=== PATIENT | male | born 1965 | race Caucasian/White ===

== ENCOUNTER 2017-04-06 10:29 | Emergency (ER) | payer SELFPAY ==
[~2017-04-06] VITALS: Ht 167.6 cm; Wt 104.3 kg
[2017-04-06] MEDS: ONDANSETRON HCL 4 MG/2 ML VIAL IV ONE ×2 (11:00→11:24)
[2017-04-06] MEDS ORDERED: TETANUS-DIPTH-ACEL PERTUSSIS 0.5ML SYRG IM ONE (11:00)
[2017-04-06] MEDS: MORPHINE SULFATE 4 MG/ML SYRG IV ONE ×2 (11:00→11:24)
[2017-04-06 15:05] VITALS: BP 175/109
== END 2017-04-06 15:21 | disposition short-term general hospital (02) ==
LOC: ER 10:29
DX: S02.82XA Fracture of other specified skull and facial bones, left side, initial encounter for closed fracture (principal); W08.XXXA Fall from other furniture, initial encounter; Y93.89 Activity, other specified; Y99.8 Other external cause status; Y92.89 Other specified places as the place of occurrence of the external cause
CPT/HCPCS: 70480; 70486; 90471; 90715; 94761

== ENCOUNTER 2017-05-25 00:03 | Emergency (ER) | payer SELFPAY ==
[~2017-05-25] VITALS: Ht 167.6 cm; Wt 104.3 kg
[2017-05-25 00:40] LABS: Basophils # (auto) 0 uL; Basophils % (auto) 0.8 % (0.0-2.0); Eosinophils # (auto) 0.3 uL; Eosinophils % (auto) 4.7 % (0.0-7.0); Hemoglobin 17.8 g/dL (13.5-17.5); Lymphocytes # (auto) 1.7 uL; Lymphocytes % (auto) 28.4 % (10.0-50.0); Mean Corpuscular Hgb Conc. 34.2 g/dL (32.0-36.0); Mean Corpuscular Volume 93.6 fL (80.0-100.0); Mean Platelet Volume 7.8 fL (7.4-10.4); Monocytes # (auto) 0.5 uL; Monocytes % (auto) 7.5 % (0.0-12.0); Neutrophils # (auto) 3.6 uL; Neutrophils % (auto) 58.6 % (37.0-80.0); Platelet Count (auto) 194 10^3/uL (140-450); Red Cell Distribution Width 12.1 % (11.6-16.0); White Blood Cell 6.1 10^3/uL (4.4-10.8)
[2017-05-25 00:57] LABS: Albumin 3.2 g/dL (3.4-5.0); BUN/Creatinine Ratio 9.5; Calcium 8.4 mg/dL (8.5-10.1); Potassium 4.3 mmol/L (3.5-5.1)
[2017-05-25 01:00] LABS: Bilirubin, Total 0.4 mg/dL (0.2-1.0); Total Protein 7.8 g/dL (6.4-8.2)
[2017-05-25 01:01] LABS: INR 1.05 (0.9-1.15); Partial Thromboplastin Time 26.5 sec (22.64-33.71); Prothrombin Time 11.4 sec (9.37-12.3)
[2017-05-25] MEDS ORDERED: cefTRIAXone 1GM/50ML D5W 50 ML IV ONE ×2 (01:14→01:30)
[2017-05-25] MEDS ORDERED: HYDROmorphone HCL 2 MG/ML VL IV ONE ×2 (01:15→02:45)
[2017-05-25] MEDS ORDERED: ONDANSETRON HCL 4 MG/2 ML VIAL IV ONE ×2 (01:15→02:45)
[2017-05-25] MEDS ORDERED: LIDOCAINE 2%HCL (LOCAL ANESTH.) INJ 20ML MDV ONE (01:38)
[2017-05-25] MEDS ORDERED: LIDOCAINE 1% HCL (LOCAL ANESTH.) INJ 20ML MDV ONE (01:51)
[2017-05-25] MEDS ORDERED: NEOMYCIN-BACITRACIN-POLYM 15GM TOP OINT TOP ONE (02:22)
[2017-05-25] MEDS ORDERED: LIDOCAINE 1% HCL (LOCAL ANESTH.) INJ 20ML MDV IJ ONE (02:45)
[2017-05-25] MEDS ORDERED: NEOMYCIN-BACITRACIN-POLYM UNITDOSE PKG TOP OINT TOP ONE (02:45)
[2017-05-25] MEDS ORDERED: LEVOFLOXACIN 500 MG TAB PO ONE (04:15)
[2017-05-25 04:52] VITALS: BP 122/99
== END 2017-05-25 04:55 | disposition home or self-care (01) ==
LOC: EDBD 00:03 → ER 00:06
DX: S02.2XXA Fracture of nasal bones, initial encounter for closed fracture (principal); S01.81XA Laceration without foreign body of other part of head, initial encounter; Z88.0 Allergy status to penicillin; W20.8XXA Other cause of strike by thrown, projected or falling object, initial encounter; Z91.81 History of falling; Y93.89 Activity, other specified; Y99.8 Other external cause status; Y92.89 Other specified places as the place of occurrence of the external cause
CPT/HCPCS: 12015; 36415; 70450; 70486; 80053; 85025; 85610; 85730; 93005; 94761; 96365; 96375; 96376; 99285; J0696; J1170; J2001; J2405; J7030

== ENCOUNTER 2020-08-11 08:02 | Emergency (ER) | payer SELFPAY ==
[~2020-08-11] VITALS: Ht 167.6 cm; Wt 86.2 kg
[2020-08-11 09:47] LABS: Basophils # (auto) 0.1 10 ^3/uL (0-0.2); Basophils % (auto) 0.7 % (0.0-2.0); Eosinophils # (auto) 0.2 10 ^3/uL (0-0.8); Eosinophils % (auto) 2.5 % (0.0-7.0); Hematocrit 45.3 % (41.0-53.0); Hemoglobin 15.7 g/dL (13.5-17.5); Lymphocytes # (auto) 1.1 10 ^3/uL (0.4-5.4); Lymphocytes % (auto) 13.6 % (10.0-50.0); Mean Corpuscular Hemoglobin 32.2 pg (28.0-32.0); Mean Corpuscular Hgb Conc. 34.6 g/dL (32.0-36.0); Mean Corpuscular Volume 93.1 fL (80.0-100.0); Monocytes # (auto) 0.5 10 ^3/uL (0-1.3); Monocytes % (auto) 6.3 % (0.0-12.0); Neutrophils # (auto) 6.3 10 ^3/uL (1.6-8.6); Neutrophils % (auto) 76.9 % (37.0-80.0); Nucleated Red Blood Cells % 0.2 %; Platelet Count (auto) 251 10^3/uL (140-450); Red Blood Cells 4.87 10^6/uL (4.5-5.90); Red Cell Distribution Width 12.3 % (11.8-14.3); White Blood Cell 8.2 10^3/uL (4.4-10.8)
[2020-08-11 10:11] LABS: BUN/Creatinine Ratio 9.6; Calcium 8.2 mg/dL (8.5-10.1)
[2020-08-11] MEDS ORDERED: IOHEXOL 300 MG/ML 100ML BOTTLE IJ ONE (10:15)
[2020-08-11] MEDS ORDERED: KETOROLAC TROMETH 30 MG/ML 1ML VIAL IV ONE (11:45)
[2020-08-11 18:05] VITALS: BP 158/95
== END 2020-08-11 18:20 | disposition home or self-care (01) ==
LOC: ER 08:02
DX: S00.83XA Contusion of other part of head, initial encounter (principal); Q79.60 Ehlers-Danlos syndrome, unspecified; R22.1 Localized swelling, mass and lump, neck; X58.XXXA Exposure to other specified factors, initial encounter; Y93.89 Activity, other specified; Y92.89 Other specified places as the place of occurrence of the external cause; Y99.8 Other external cause status
CPT/HCPCS: 36415; 70450; 72125; 73030; 80048; 85025; 96374; 99285; J1885; J7030; Q9967

== ENCOUNTER 2024-01-27 08:17 | Emergency (ER) | payer OTHER ==
[~2024-01-27] VITALS: Ht 167.6 cm; Wt 94.7 kg
[~2024-01-27 08:17] MED LIST: ASPI-325 PO; ATOR40TA52 PO; EMPA1TAB PO; LISI10TA34 PO; MELO15TA29 PO; MET25T PO; METF-372 PO; SACU1TAB PO
[2024-01-27 08:38] LABS: Urine Bacteria None Seen /hpf (None Seen)
[2024-01-27 08:49] LABS: Urine Blood Negative /uL (Negative); Urine Clarity Clear (Clear); Urine Color Yellow (Yellow); Urine Hyaline Cast FEW /lpf (0 - 2); Urine Mucus FEW (None Seen); Urine Protein, UAD TRACE (Negative); Urine Specific Gravity 1.025 (1.001-1.035); Urine Urobilinogen Normal (Negative); Urine WBC 3 /hpf (0 - 3); Urine pH 5.5 (5.0-9.0)
[2024-01-27 08:55] LABS: Basophils # (auto) 0.1 10 ^3/uL (0-0.2); Basophils % (auto) 1.2 % (0.0-2.0); Eosinophils # (auto) 0.3 10 ^3/uL (0-0.8); Eosinophils % (auto) 3.9 % (0.0-7.0); Hematocrit 43.1 % (41.0-53.0); Hemoglobin 14.5 g/dL (13.5-17.5); Lymphocytes # (auto) 1.5 10 ^3/uL (0.4-5.4); Lymphocytes % (auto) 22.7 % (10.0-50.0); Mean Corpuscular Hemoglobin 30.6 pg (28.0-32.0); Mean Corpuscular Hgb Conc. 33.7 g/dL (32.0-36.0); Mean Corpuscular Volume 90.9 fL (80.0-100.0); Monocytes # (auto) 0.5 10 ^3/uL (0-1.3); Monocytes % (auto) 8.2 % (0.0-12.0); Neutrophils # (auto) 4.1 10 ^3/uL (1.6-8.6); Nucleated Red Blood Cells % 0.2 %; Red Blood Cells 4.75 10^6/uL (4.5-5.90); Red Cell Distribution Width 12.4 % (11.8-14.3); White Blood Cell 6.4 10^3/uL (4.4-10.8)
[2024-01-27 09:10] LABS: Alanine Aminotransferase 37 U/L (7-40); Albumin 4.8 g/dL (3.2-4.8); Alkaline Phosphatase 72 U/L (46-116); Aspartate Aminotransferase 29 U/L (13-40)
[2024-01-27 09:11] LABS: Bilirubin, Total 0.8 mg/dL (0.2-1.0); Total Protein 7.2 g/dL (5.7-8.2)
[2024-01-27 09:12] LABS: Chloride 99 mmol/L (98-107); Potassium 4.2 mmol/L (3.5-5.1); Sodium 132 mmol/L (136-145)
[2024-01-27 09:15] LABS: Anion Gap 9 (5-15); Calcium 9.6 mg/dL (8.5-10.1); Carbon Dioxide 24 mmol/L (20-30)
[2024-01-27 09:20] LABS: BUN/Creatinine Ratio 15.2 (10.0-20.0); Blood Urea Nitrogen 14 mg/dL (9-23); Glucose 121 mg/dL (74-106)
[2024-01-27 15:49] VITALS: BP 137/76; PULSE 61; RESP 20; TEMP 97.2; O2SAT 97
== END 2024-01-27 16:01 | disposition home or self-care (01) ==
LOC: ER 08:17
DX: R20.2 Paresthesia of skin (principal); I10 Essential (primary) hypertension; E11.9 Type 2 diabetes mellitus without complications; E78.5 Hyperlipidemia, unspecified; I25.2 Old myocardial infarction; Z88.0 Allergy status to penicillin; Z79.899 Other long term (current) drug therapy
CPT/HCPCS: 36415; 80053; 81001; 82962; 84484; 85025; 93005

== ENCOUNTER 2024-09-23 11:12 | Emergency (ER) | payer OTHER ==
[~2024-09-23] VITALS: Ht 172.7 cm; Wt 94.0 kg
[2024-09-23] MEDS: SACUBITRIL-VALSARTAN 24mg/26mg TAB PO SCH (12:31)
--- NOTE | 2024-09-23 12:52 | ED.PDOC ---
History of Present Illness HPI Comments 58Y M with PMHx DM, HTN, HLD, and [place] presents to ED for chief complaint dizziness. Additional symptoms include general weakness and blurry vision. Symptoms began while pt was at work today. Pt says he feels uneasy when standing up. Pt denies chest pain, SOB, and headache. Allergies include PCN. Chief Complaint: Dizziness Time Seen by MD: 12:33 Primary Care Provider: ISABEL Lemons Notes: Medications, Allergies Allergies: Coded Allergies: Penicillins (Verified Allergy, Unknown, 01/07/24) Uncoded Allergies: PENICILLIN (Allergy, Unknown, 05/25/17) Home Meds Active Scripts Sacubitril-Valsartan (Entresto 24-26 mg) 1 Tab Tab, 1 TAB PO BID for 30 Days, # 60 TAB 30 Refills Prov:KONSTANTIN BURNS DO 01/10/24 Metoprolol Tartrate (Lopressor) 25 Mg Tb, 12.5 MG PO BID for 30 Days, #30 TAB 3 Refills Prov:KONSTANTIN BURNS DO 01/10/24 Empagliflozin (Jardiance) 10 Mg Tab, 10 MG PO DAILY for 30 Days, #30 TAB 3 Refills Prov:KONSTANTIN BURNS DO 01/10/24 Atorvastatin Calcium (ATORVASTATIN CALCIUM) 40 Mg Tab, 1 TAB PO DAILY for 30 Days, #30 TAB 5 Refills Prov:KONSTANTIN BURNS DO 01/10/24 Aspirin (Aspirin Low Dose) 81 Mg Tab, 81 MG PO DAILY for 30 Days, #30 TAB 3 Refills Prov:KONSTANTIN BURNS DO 01/10/24 Reported Medications Meloxicam (Meloxicam) 15 Mg Tab, 1 TAB PO DAILY 01/08/24 Lisinopril (Lisinopril) 10 Mg Tab, 1 TAB PO DAILY 01/08/24 Metformin Hydrochloride (Metformin Hcl) 1,000 Mg Tab, 1 TAB PO BID 01/08/24 Information Source: Patient Mode of Arrival: Ambulatory Severity: Mild Timing: Hours Duration: Since onset Past Medical History PAST MEDICAL HISTORY: DM, High Lipids, HTN, [place] Surgical History: Denies all surgeries Family History Family History: Reviewed,noncontributory to illness Social History Smoker: Non-Smoker Alcohol: Occasionally Drugs: Denies Drug Use Lives In: Home Constitutional: reports: weakness; denies: chills, diaphoresis, fatigue, fever, malaise, sweats, others EENTM: reports: blurred vision; denies: double vision, ear bleeding, ear discharge, ear drainage, ear pain, ear ringing, eye pain, eye redness, hearing loss, mouth pain, mouth swelling, nasal discharge, nose bleeding, nose congestion, nose pain, photophobia, tearing, throat pain, throat swelling, voice changes, others Respiratory: denies: cough, hemoptysis, orthopnea, SOB at rest, shortness of breath, SOB with excertion, stridor, wheezing, others Cardiovascular: denies: chest pain, dizzy spells, diaphoresis, Dyspnea on exertion, edema, irregular heart beat, left arm pain, lightheadedness, palpitations, PND, syncope, others Gastrointestinal: denies: abdomen distended, abdominal pain, blood streaked bowels, constipated, diarrhea, dysphagia, difficulty swallowing, hematemesis, melena, nausea, poor appetite, poor fluid intake, rectal bleeding, rectal pain, vomiting, others Genitourinary: denies: burning, dysuria, flank pain, frequency, hematuria, incontinence, penile discharge, penile sore, pain, testicle pain, testicle swelling, urgency, others Neurological: reports: dizziness; denies: fainting, headache, left sided numbness, left sided weakness, numbness, paresthesia, pre-existing deficit, right sided numbness, right sided weakness, seizure, speech problems, tingling, tremors, weakness, others Musculoskeletal: denies: back pain, gout, joint pain, joint swelling, muscle pain, muscle stiffness, neck pain, others Integumetry: denies: bruises, change in color, change in hair/nails, dryness, laceration, lesions, lumps, rash, wounds, others Allergic/Immunocompromised: denies: Difficulty Healing, Frequent Infections, Hives, Itching, others Hematologic/Lymphatic: denies: anemia, blood clots, easy bleeding, easy br uising, swollen glands, others Endocrine: denies: excessive hunger, excessive sweating, excessive thirst, excessive urination, flushing, intolerance to cold, intolerance to heat, unexplained weight gain, unexplained weight loss, others Psychiatric: denies: anxiety, bipolar disorder, depression, hopeless, panic disorder, schizophrenia, sleepless, suicidal, others All Other Systems: Reviewed and Negative Physical Exam General Appearance: No Apparent Distress, Normal HEENT: Normal ENT Inspection, Pharynx Normal, TMs Normal Neck: Full Range of Motion, Non-Tender, Normal, Normal Inspection Respiratory: Chest Non-Tender, Lungs Clear, No Accessory Muscle Use, No Respiratory Distress, Normal Breath Sounds Cardiovascular: No Edema, No JVD, No Murmur, No Gallop, Normal Peripheral Pulses, Regular Rate/Rhythm Breast Exam: Deferred Gastrointestinal: No Organomegaly, Non Tender, No Pulsatile Mass, Normal Bowel Sounds, Soft Genitalia: Deferred Pelvic: Deferred Rectal: Deferred Extremities: No calf tenderness, Normal capillary refill, Normal inspection, Normal range of motion, Non-tender, No pedal edema Musculoskeletal : Apperance: Normal 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 Was a procedure done?: No Differential Dx Considerations may include: May, NSTEMI, electrolyte abnormalities, UTI X-Ray, Labs, Meds, VS Vital Signs Date Time Temp Pulse Resp B/P (MAP) Pulse Ox O2 Delivery O2 Flow Rate FiO2 09/23/24 12:34 126/66 (86) 98 09/23/24 11:47 60 18 157/80 (105) 96 09/23/24 11:47 60 18 96 Room Air 09/23/24 11:25 60 09/23/24 11:24 97.4 67 20 198/107 (137) 97 Lab Test 09/23/24 14:21 09/23/24 13:45 Range/Units Troponin I High Sensitivity < 3 L 3 L </=54 ng/L White Blood Count 6.0 4.4-10.8 10^3/uL Red Blood Count 4.56 4.5-5.90 10^6/uL Hemoglobin 14.3 13.5-17.5 g/dL Hematocrit 42.8 41.0-53.0 % Mean Corpuscular Volume 93.8 80.0-100.0 fL Mean Corpuscular Hemoglobin 31.4 28.0-32.0 pg Mean Corpuscular Hemoglobin Concent 33.5 32.0-36.0 g/dL Red Cell Distribution Width 13.1 11.8-14.3 % Platelet Count 227 140-450 10^3/uL Mean Platelet Volume 7.7 6.9-10.8 fL Neutrophils (%) (Auto) 59.8 37.0-80.0 % Lymphocytes (%) (Auto) 24.8 10.0-50.0 % Monocytes (%) (Auto) 11.6 0.0-12.0 % Eosinophils (%) (Auto) 2.7 0.0-7.0 % Basophils (%) (Auto) 1.1 0.0-2.0 % Neutrophils # (Auto) 3.6 1.6-8.6 10 ^3/uL Lymphocytes # (Auto) 1.5 0.4-5.4 10 ^3/uL Monocytes # (Auto) 0.7 0-1.3 10 ^3/uL Eosinophils # (Auto) 0.2 0-0.8 10 ^3/uL Basophils # (Auto) 0.1 0-0.2 10 ^3/uL Nucleated Red Blood Cells 0.1 % D-Dimer, Quantitative 0.19 0.0-0.49 mg/L FEU Sodium Level 136 136-145 mmol/L Potassium Level 4.8 3.5-5.1 mmol/L Chloride Level 99 98-107 mmol/L Carbon Dioxide Level 28 20-31 mmol/L Anion Gap 9 5-15 Blood Urea Nitrogen 13 9-23 mg/dL Creatinine 0.73 0.700-1.30 mg/dL Glomerular Filtration Rate Calc 105 >90 mL/min BUN/Creatinine Ratio 17.8 10.0-20.0 Serum Glucose 119 H 74-106 mg/dL Calcium Level 10.4 8.7-10.4 mg/dL Total Bilirubin 0.5 0.2-1.0 mg/dL Aspartate Amino Transferase (AST) 11 L 13-40 U/L Alanine Aminotransferase (ALT) 26 7-40 U/L Alkaline Phosphatase 84 46-116 U/L Total Protein 7.0 5.7-8.2 g/dL Albumin 4.5 3.2-4.8 g/dL X-Ray, Labs, Meds, VS Comment This well-appearing 58-year-old male presents secondary to a wave going over him. He has no other complaints. Denies any palliative provocative factor. No modifying factors. Denies pain. Upon reassessment, consider to be asymptomatic. As such, discharged home has follow up with the PCP or return to the ER for new/worse/worsening symptoms. He states his understanding. Time of 1ST Reevaluation: 13:03 Reevaluation 1ST: Resolved Time of 2ND Reevaluation: 15:39 Reevaluation 2ND: Resolved Reevaluation 3RD: Resolved Patient Education/Counseling: Diagnosis, Treatment Family Education/Counseling: No Family Present Departure 1 Departure Time of Disposition: 16:30 Impression: Primary Impression: Diabetes mellitus with hyperglycemia Disposition: 01 HOME / SELF CARE / HOMELESS Condition: Good Critical Care Note Critical Care Time?: No Stability Stability form required: No Heart Score Heart Score: Heart Score Response (Comments) Value History N/A 0 EKG N/A 0 Age N/A 0 Risk Factors N/A 0 Troponin N/A 0 Total 0 I personally scribed for THA HENSON MD ([email or web address]) on 09/23/24 at 12:52. Electronically submitted by Jennifer Mark ([employer]). I personally scribed for THA HENSON MD ([email or web address]) on 09/23/24 at 14:02. Electronically submitted by Jennifer Mark ([employer]). THA HENSON MD Sep 23, 2024 12:52
[2024-09-23 14:07] LABS: Basophils # (auto) 0.1 10 ^3/uL (0-0.2); Basophils % (auto) 1.1 % (0.0-2.0); Eosinophils # (auto) 0.2 10 ^3/uL (0-0.8); Eosinophils % (auto) 2.7 % (0.0-7.0); Hematocrit 42.8 % (41.0-53.0); Hemoglobin 14.3 g/dL (13.5-17.5); Lymphocytes # (auto) 1.5 10 ^3/uL (0.4-5.4); Lymphocytes % (auto) 24.8 % (10.0-50.0); Mean Corpuscular Hemoglobin 31.4 pg (28.0-32.0); Mean Corpuscular Hgb Conc. 33.5 g/dL (32.0-36.0); Mean Corpuscular Volume 93.8 fL (80.0-100.0); Monocytes # (auto) 0.7 10 ^3/uL (0-1.3); Monocytes % (auto) 11.6 % (0.0-12.0); Neutrophils # (auto) 3.6 10 ^3/uL (1.6-8.6); Neutrophils % (auto) 59.8 % (37.0-80.0); Nucleated Red Blood Cells % 0.1 %; Platelet Count (auto) 227 10^3/uL (140-450); Red Blood Cells 4.56 10^6/uL (4.5-5.90); Red Cell Distribution Width 13.1 % (11.8-14.3)
[2024-09-23 14:32] LABS: Alanine Aminotransferase 26 U/L (7-40); Alkaline Phosphatase 84 U/L (46-116); Anion Gap 9 (5-15); BUN/Creatinine Ratio 17.8 (10.0-20.0); Blood Urea Nitrogen 13 mg/dL (9-23); Calcium 10.4 mg/dL (8.7-10.4); Carbon Dioxide 28 mmol/L (20-31); Chloride 99 mmol/L (98-107); Potassium 4.8 mmol/L (3.5-5.1); Sodium 136 mmol/L (136-145)
[2024-09-23 14:33] LABS: Albumin 4.5 g/dL (3.2-4.8); Bilirubin, Total 0.5 mg/dL (0.2-1.0)
[2024-09-23 14:53] LABS: Aspartate Aminotransferase 11 U/L (13-40); Glucose 119 mg/dL (74-106)
[2024-09-23 16:48] VITALS: BP 167/77; PULSE 55; RESP 16; TEMP 97.7; O2SAT 100
--- NOTE | 2024-09-27 12:57 | ECG ---
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
== END 2024-09-23 16:49 | disposition home or self-care (01) ==
LOC: ER 11:12
DX: E11.65 Type 2 diabetes mellitus with hyperglycemia (principal); I10 Essential (primary) hypertension; I25.2 Old myocardial infarction; E78.5 Hyperlipidemia, unspecified; Z88.0 Allergy status to penicillin; Z79.1 Long term (current) use of non-steroidal anti-inflammatories (NSAID); Z79.82 Long term (current) use of aspirin; Z79.84 Long term (current) use of oral hypoglycemic drugs; Z79.899 Other long term (current) drug therapy
CPT/HCPCS: 36415; 80053; 84484; 85025; 85379; 93005

== ENCOUNTER 2024-09-30 01:34 | Inpatient (IN) | payer OTHER ==
[~2024-09-30] VITALS: Ht 167.6 cm; Wt 90.6 kg
[2024-09-30] VITALS (9 sets, daily range): BP systolic 102–119; BP diastolic 68–80; PULSE 76–113; RESP 14–26; TEMP 94.8–96.4; O2SAT 86–97
--- NOTE | 2024-09-30 01:47 | ED.PDOC ---
GI ASSESSMENT HPI Comments 58-year-old male who came to ER for abdominal pain. Patient states he has been having abdominal pain since yesterday, intermittent, periumbilical, cramping, nonradiating, associated bouts of nausea and vomiting. Denies any diarrhea. Patient states he possibly ate some spoiled food. Noted worsening of abdominal pain prompted patient to come to the ER. It does have a history of left-sided intra-abdominal mass that was not connected to any organs per patient. Patient was mildly tachycardic at arrival. Chief Complaint: Abdominal Pain Time Seen by MD: 01:47 Primary Care Provider: ISABEL Reviewed Notes: Nurses Notes Allergies: Coded Allergies: Penicillins (Verified Allergy, Unknown, 01/07/24) Uncoded Allergies: PENICILLIN (Allergy, Unknown, 05/25/17) Home Meds Active Scripts Sacubitril-Valsartan (Entresto 24-26 mg) 1 Tab Tab, 1 TAB PO BID for 30 Days, #60 TAB 30 Refills Prov:KONSTANTIN BURNS DO 01/10/24 Metoprolol Tartrate (Lopressor) 25 Mg Tb, 12.5 MG PO BID for 30 Days, #30 TAB 3 Refills Prov:BURNSKONSTANTIN Leslie DO 01/10/24 Empagliflozin (Jardiance) 10 Mg Tab, 10 MG PO DAILY for 30 Days, #30 TAB 3 Refills Prov:KONSTANTIN BURNS DO 01/10/24 Atorvastatin Calcium (ATORVASTATIN CALCIUM) 40 Mg Tab, 1 TAB PO DAILY for 30 Days, #30 TAB 5 Refills Prov:KONSTANTIN BURNS DO 01/10/24 Aspirin (Aspirin Low Dose) 81 Mg Tab, 81 MG PO DAILY for 30 Days, #30 TAB 3 Refills Prov:KONSTANTIN BURNS DO 01/10/24 Reported Medications Meloxicam (Meloxicam) 15 Mg Tab, 1 TAB PO DAILY 01/08/24 Lisinopril (Lisinopril) 10 Mg Tab, 1 TAB PO DAILY 01/08/24 Metformin Hydrochloride (Metformin Hcl) 1,000 Mg Tab, 1 TAB PO BID 01/08/24 Information Source: Patient Mode of Arrival: Ambulatory Timing: Hours Duration: Intermittent Prehospital treatment: None Quality: Cramping Vomitus: Watery Stool: Normal Severity: Moderate Recent: Possible spoiled food Recent Hx of: Diabetes Pain Location: Periumbilical Modifying Factors: Nothing Associated sign and symptoms: Nausea, Vomiting, Abdominal Pain Past Medical History PAST MEDICAL HISTORY: CVA, DM, High Lipids, HTN, [place] Surgical History: Denies all surgeries Surgical History (Other): Resection of intra-abdominal mass Family History Family History: Reviewed,noncontributory to illness Social History Smoker: Non-Smoker Alcohol: Occasionally Drugs: Denies Drug Use Lives In: Home Constitutional: denies: chills, diaphoresis, fatigue, fever, malaise, sweats, weakness, others EENTM: denies: blurred vision, double vision, ear bleeding, ear discharge, ear drainage, ear pain, ear ringing, eye pain, eye redness, hearing loss, mouth pain, mouth swelling, nasal discharge, nose bleeding, nose congestion, nose pain, photophobia, tearing, throat pain, throat swelling, voice changes, others Cardiovascular: denies: chest pain, dizzy spells, diaphoresis, Dyspnea on exertion, edema, irregular heart beat, left arm pain, lightheadedness, palpitations, PND, syncope, others Gastrointestinal: reports: abdominal pain, nausea, poor appetite, vomiting; denies: abdomen distended, blood streaked bowels, constipated, diarrhea, dysphagia, difficulty swallowing, hematemesis, melena, poor fluid intake, rectal bleeding, rectal pain, others Genitourinary: denies: burning, dysuria, flank pain, frequency, hematuria, incontinence, penile discharge, penile sore, pain, testicle pain, testicle swelling, urgency, others Neurological: denies: dizziness, fainting, headache, left sided numbness, left sided weakness, numbness, paresthesia, pre-existing deficit, right sided numbness, right sided weakness, seizure, speech problems, tingling, tremors, weakness, others Musculoskeletal: denies: back pain, gout, joint pain, joint swelling, muscle pain, muscle stiffness, neck pain, others Integumetry: denies: bruises, change in color, change in hair/nails, dryness, laceration, lesions, lumps, rash, wounds, others Allergic/Immunocompromised: denies: Difficulty Healing, Frequent Infections, Hives, Itching, others Hematologic/Lymphatic: denies: anemia, blood clots, easy bleeding, easy bruising, swollen glands, others Endocrine: denies: excessive hunger, excessive sweating, excessive thirst, excessive urination, flushing, intolerance to cold, intolerance to heat, unexp lained weight gain, unexplained weight loss, others Psychiatric: denies: anxiety, bipolar disorder, depression, hopeless, panic disorder, schizophrenia, sleepless, suicidal, others Physical Exam Exam Comments Patient appears much older than his chronology. General Appearance: Moderate Distress (Patient appears to be in moderate distress at time of evaluation.), Normal HEENT: Normal ENT Inspection, Pharynx Normal, TMs Normal Neck: Full Range of Motion, Non-Tender, Normal, Normal Inspection Respiratory: Chest Non-Tender, Lungs Clear, No Accessory Muscle Use, No Respiratory Distress, Normal Breath Sounds Cardiovascular: No Edema, No JVD, No Murmur, No Gallop, Normal Peripheral Pulses, Regular Rate/Rhythm Breast Exam: Deferred Gastrointestinal: Other (Diffuse periumbilical tenderness to palpation throughout. Abdomen was mildly rigid. No signs of trauma. No pulsatile masses.) Genitalia: Deferred Pelvic: Deferred Rectal: Deferred Extremities: No calf tenderness, Normal capillary refill, Normal inspection, Normal range of motion, Non-tender, No pedal edema Musculoskeletal : Apperance: Normal Neurologic: Alert, No Motor Deficits, Normal Affect, Normal Mood, No Sensory Deficits Cerebellar Function: Normal Reflexes: Normal Skin: Dry, Normal Color, Warm Lymphatic: No Adenopathy Was a procedure done? Was a procedure done?: No GI differential Dx Differential Diagnosis: Diverticular disease, Gastritis/PUD, Gastroenteritis, Pancreatitis, UTI, Urolithiasis, Dehydration, Electrolyte Imbalance, Food Poisoning X-Ray, Labs, Meds, VS Vital Signs Date Time Temp Pulse Resp B/P (MAP) Pulse Ox O2 Delivery O2 Flow Rate FiO2 09/30/24 02:16 98.1 104 16 94/71 (79) 94 98.1 09/30/24 02:16 104 16 94 Room Air 09/30/24 01:51 104 09/30/24 01:41 98.5 109 16 126/96 (106) 94 Lab Test 09/30/24 01:56 Range/Units White Blood Count 10.6 # 4.4-10.8 10^3/uL Red Blood Count 5.36 4.5-5.90 10^6/uL Hemoglobin 16.9 # 13.5-17.5 g/dL Hematocrit 49.6 # 41.0-53.0 % Mean Corpuscular Volume 92.6 80.0-100.0 fL Mean Corpuscular Hemoglobin 31.5 28.0-32.0 pg Mean Corpuscular Hemoglobin Concent 34.0 32.0-36.0 g/dL Red Cell Distribution Width 13.3 11.8-14.3 % Platelet Count 308 140-450 10^3/uL Mean Platelet Volume 7.9 6.9-10.8 fL Neutrophils (%) (Auto) 83.3 H 37.0-80.0 % Lymphocytes (%) (Auto) 7.8 L 10.0-50.0 % Monocytes (%) (Auto) 8.0 0.0-12.0 % Eosinophils (%) (Auto) 0.3 0.0-7.0 % Basophils (%) (Auto) 0.6 0.0-2.0 % Neutrophils # (Auto) 8.8 H 1.6-8.6 10 ^3/uL Lymphocytes # (Auto) 0.8 0.4-5.4 10 ^3/uL Monocytes # (Auto) 0.8 0-1.3 10 ^3/uL Eosinophils # (Auto) 0 0-0.8 10 ^3/uL Basophils # (Auto) 0.1 0-0.2 10 ^3/uL Nucleated Red Blood Cells 0.0 % Sodium Level 131 #L 136-145 mmol/L Potassium Level 4.1 3.5-5.1 mmol/L Chloride Level 90 L 98-107 mmol/L Carbon Dioxide Level 28 20-31 mmol/L Anion Gap 13 5-15 Blood Urea Nitrogen 16 9-23 mg/dL Creatinine 1.01 0.700-1.30 mg/dL Glomerular Filtration Rate Calc 86 >90 mL/min BUN/Creatinine Ratio 15.8 10.0-20.0 Serum Glucose 220 #H 74-106 mg/dL Calcium Level 10.1 8.7-10.4 mg/dL Total Bilirubin 1.2 H 0.2-1.0 mg/dL Aspartate Amino Transferase (AST) < 8 L 13-40 U/L Alanine Aminotransferase (ALT) 18 7-40 U/L Alkaline Phosphatase 98 46-116 U/L Troponin I High Sensitivity < 3 L </=54 ng/L B-Type Natriuretic Peptide 10.82 0-100 pg/mL Total Protein 7.8 5.7-8.2 g/dL Albumin 5.0 H 3.2-4.8 g/dL Lipase 30 12-53 U/L Current Medications Medications (Trade) Dose Ordered Sig/Leti Route Start Time Stop Time Status Last Admin Dicyclomine HCl (Bentyl Injection) 20 mg ONCE ONCE IM 09/30/24 01:45 09/30/24 01:46 DC 09/30/24 02:10 Ondansetron HCl (Zofran) 4 mg ONCE ONCE IM 09/30/24 01:45 09/30/24 01:46 DC 09/30/24 02:10 Sodium Chloride 1,000 ml @ 200 mls/hr Q5H ONCE IV 09/30/24 02:30 09/30/24 07:29 09/30/24 02:27 X-Ray, Labs, Meds, VS Comment Patient's laboratories and imaging studies were pending at time of this note. Patient care is being transferred to Dr. Sharp for evaluation of studies when returned. Time of 1ST Reevaluation: 02:43 Reevaluation 1ST: Improved Consultation: PCP Patient Education/Counseling: Diagnosis, Treatment Family Education/Counseling: Diagnosis, Treatment, No Family Present Departure 1 Departure Time of Disposition: 02:43 Impression: Primary Impression: Abdominal pain Disposition: 30 STILL A PATIENT Condition: Fair Discharged With: Self Comments Critical Care Note Critical Care Time?: No Stability Stability form required: No Heart Score Heart Score: Heart Score Response (Comments) Value History N/A 0 EKG N/A 0 Age N/A 0 Risk Factors N/A 0 Troponin N/A 0 Total 0 I personally scribed for FLAVIA BUTLER PAC ([email or web address]) on 09/30/24 at 01:47. Electronically submitted by Shiv Mayorga ([email or web address]). FLAVIA BUTLER PAC Sep 30, 2024 01:47
[2024-09-30 02:10] LABS: Basophils # (auto) 0.1 10 ^3/uL (0-0.2); Basophils % (auto) 0.6 % (0.0-2.0); Eosinophils # (auto) 0 10 ^3/uL (0-0.8); Eosinophils % (auto) 0.3 % (0.0-7.0); Hematocrit 49.6 % (41.0-53.0); Hemoglobin 16.9 g/dL (13.5-17.5); Lymphocytes # (auto) 0.8 10 ^3/uL (0.4-5.4); Lymphocytes % (auto) 7.8 % (10.0-50.0); Mean Corpuscular Hemoglobin 31.5 pg (28.0-32.0); Mean Corpuscular Volume 92.6 fL (80.0-100.0); Monocytes # (auto) 0.8 10 ^3/uL (0-1.3); Neutrophils # (auto) 8.8 10 ^3/uL (1.6-8.6); Neutrophils % (auto) 83.3 % (37.0-80.0); Platelet Count (auto) 308 10^3/uL (140-450); Red Blood Cells 5.36 10^6/uL (4.5-5.90); Red Cell Distribution Width 13.3 % (11.8-14.3); White Blood Cell 10.6 10^3/uL (4.4-10.8)
[2024-09-30] MEDS: ONDANSETRON HCL 4 MG/2 ML VIAL IM ONE (02:10)
[2024-09-30] MEDS: DICYCLOMINE HCL (10MG/ML) 2 ML AMPULE IM ONE (02:10)
[2024-09-30] MEDS: SODIUM CHLORIDE 0.9% 1,000 ML IV ONE ×3 (02:27→06:20)
[2024-09-30 02:29] LABS: Alanine Aminotransferase 18 U/L (7-40); Alkaline Phosphatase 98 U/L (46-116); Anion Gap 13 (5-15); BUN/Creatinine Ratio 15.8 (10.0-20.0); Bilirubin, Total 1.2 mg/dL (0.2-1.0); Blood Urea Nitrogen 16 mg/dL (9-23); Calcium 10.1 mg/dL (8.7-10.4); Carbon Dioxide 28 mmol/L (20-31); Lipase 30 U/L (12-53); Potassium 4.1 mmol/L (3.5-5.1); Total Protein 7.8 g/dL (5.7-8.2)
[2024-09-30 02:30] LABS: Aspartate Aminotransferase < 8 U/L (13-40); Chloride 90 mmol/L (98-107); Glucose 220 mg/dL (74-106); Sodium 131 mmol/L (136-145)
[2024-09-30 03:59] LABS: Urine Bacteria None Seen /hpf (None Seen)
[2024-09-30 04:07] LABS: Urine Blood Negative /uL (Negative); Urine Clarity Clear (Clear); Urine Color Yellow (Yellow); Urine Protein, UAD Negative (Negative); Urine Specific Gravity 1.034 (1.001-1.035); Urine Urobilinogen Normal (Negative); Urine WBC 1 /hpf (0 - 3)
--- NOTE | 2024-09-30 04:12 | ECG ---
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
--- NOTE | 2024-09-30 04:16 | DVH ---
Exam: CT CT AB PEL WO CON-NO ORAL OR IV History: Severe periumbilical abdominal pain Comparison Study: None available at time of dictation. TECHNIQUE: Noncontrast CT imaging of the abdomen and pelvis was obtained. The data set was subsequent ly reconstructed into axial images. Images were reviewed on a work station using a combination of axi al and multiplanar using a variety of window levels and settings. All CT scans at this medical facility are performed using dose modulation techniques as appropriate t o a performed exam including the following: Automated exposure control was utilized; adjustment of th e MA and/or KV according to patient size; and use of iterative reconstruction technique. Radiation Dose Information: CT Dose: Dose-length product is 826.25 mGy*cm FINDINGS: Imaged portions of the lung bases demonstrate subsegmental atelectasis. Incompletely imaged however appears to be right diaphragmatic hernia with cranial positioning of the liver and portion of the colon. There is a paraesophageal hiatal hernia. Limited noncontrast evaluati on of the liver, gallbladder, spleen, and pancreas appear otherwise unremarkable. The kidneys appear symmetric without hydronephrosis. There is a 2.1 cm left adrenal nodule the right adrenal gland appea rs unremarkable. There is a long segment of abnormal appearing small bowel in the mid abdomen with marked wall thicken ing and significant perienteric fat stranding. There is a 4.3 cm area which appears to represent a lo culated collection of fecalized contents with areas of extraluminal air. There is a 14 cm fat and large bowel containing hernia along the left lateral abdominal wall without obstruction and with wide neck of 5.0 cm. No free fluid. No suspicious osseous lesion. IMPRESSION: 1. Large segment of abnormal appearing small bowel in the mid abdomen with marked fat stranding in ad jacent free air suggesting infectious or ischemic process with localized perforation. 2. Large fat and large bowel containing left lateral wall hernia just below the 11th rib. 3. Indeterminate left adrenal nodule. 4. Presumed large right diaphragmatic hernia.
[2024-09-30] MEDS: metroNIDAZOLE 500MG/100ML 100 ML IV ONE (05:13)
[2024-09-30] MEDS: ONDANSETRON HCL 4 MG/2 ML VIAL IV ONE ×2 (05:13→13:11)
[2024-09-30] MEDS: levoFLOXacin 750MG 150 ML IV ONE (05:15)
[2024-09-30] MEDS: MORPHINE SULFATE INJ 2 MG/ml SYRG IV ONE (05:15)
[2024-09-30 05:23] LABS: Basophils # (auto) 0 10 ^3/uL (0-0.2); Basophils % (auto) 0.2 % (0.0-2.0); Eosinophils # (auto) 0 10 ^3/uL (0-0.8); Hematocrit 46.5 % (41.0-53.0); Lymphocytes # (auto) 0.4 10 ^3/uL (0.4-5.4); Lymphocytes % (auto) 3.9 % (10.0-50.0); Mean Corpuscular Hemoglobin 31.9 pg (28.0-32.0); Mean Corpuscular Hgb Conc. 34.5 g/dL (32.0-36.0); Mean Corpuscular Volume 92.4 fL (80.0-100.0); Monocytes # (auto) 0.9 10 ^3/uL (0-1.3); Monocytes % (auto) 9.5 % (0.0-12.0); Neutrophils % (auto) 86.4 % (37.0-80.0); Nucleated Red Blood Cells % 0.1 %; Platelet Count (auto) 254 10^3/uL (140-450); Red Blood Cells 5.03 10^6/uL (4.5-5.90); White Blood Cell 9.2 10^3/uL (4.4-10.8)
--- NOTE | 2024-09-30 05:44 | PRN ---
Misceleneous Note Note Note Sign-out received from Norm Johnson. 58-year-old male with abdominal pain since yesterday. Pending CT abdomen and pelvis results. Patient re-evaluated: abdominal exam remains benign, soft, no guarding or rigidity, mild left lower quadrant tenderness to palpation. Non Contrast CT abdomen and pelvis shows: IMPRESSION: 1. Large segment of abnormal appearing small bowel in the mid abdomen with marked fat stranding in adjacent free air suggesting infectious or ischemic process with localized perforation. Patient started on Levaquin and Flagyl Discussed with Dr. Abisai Damian who authorizes patient be admitted at this facility ([id number]) Discussed with Dr. Coles (General Surgery), recommendation is initiate NG tube on suction, IV fluids, he will see patient in the emergency department now. JUAN DAVID CHÁVEZ MD Sep 30, 2024 05:44
--- NOTE | 2024-09-30 06:54 | DVH ---
CHEST RADIOGRAPH Indication: NG tube placement Technique: Single frontal view of the chest was obtained Comparison: XY CHEST XRAY 1 VIEW on DOS: 01/07/24 FINDINGS: Lines and Tubes: NG tube in stomach Lungs: No focal consolidation. Pleura: No effusion. No pneumothorax. Cardiomediastinal contours: Unremarkable Bones: No acute osseous abnormality. IMPRESSION: No acute cardiopulmonary disease.
[2024-09-30 07:48] LABS: INR 0.97 (0.9-1.15); Partial Thromboplastin Time 25.7 SEC (24.5-34.5); Prothrombin Time 10.3 sec (9.3-11.8)
--- NOTE | 2024-09-30 07:55 | DVHINCON2 ---
DATE OF CONSULTATION: 09/30/2024 SURGICAL CONSULTATION The patient is seen in the Emergency Room. HISTORY OF PRESENT ILLNESS: He is a 58-year-old male with abdominal pain for several days, came to the Emergency Room, was evaluated and found to have extraluminal air in the abdomen, tenderness in the right upper quadrant. The patient admits to drinking heavily until day before yesterday when he stopped. He drinks 6 packs of beer plus. The patient is a nonsmoker. He has a history of Shikha-Danlos syndrome. He had a heart attack 6 months ago; however, no stents were placed according to the patient secondary to his Shikha-Danlos syndrome diagnosis. ALLERGIES: THE PATIENT IS ALLERGIC TO PENICILLIN. PAST SURGICAL HISTORY: Has had an operation in the past through a left flank incision, states that a mass was removed that, according to the patient, was not attached to anything and was benign in nature. REVIEW OF SYSTEMS: Negative for any contributory information other than as outlined above. PHYSICAL EXAMINATION: GENERAL: Reveals a well-developed, well-nourished male in no acute distress. Nasogastric tube is in place, however, not to suction. HEENT: Pupils are equal, round, react to light equally. Sclerae are nonicteric. Extraocular motion is intact. Uvula midline. Trachea midline. NECK: Carotids are full without bruits. Jugular veins are collapsed. HEART: Regular rate and rhythm without murmur or gallop. ABDOMEN: Slightly distended, tender in the right upper quadrant and midepigastrium. There is no guarding, no CVA tenderness. EXTREMITIES: No peripheral vascular insufficiency. No venous stasis. LABORATORY DATA: The patient's laboratory evaluation consisted of a CBC, which shows a normal white count with a left shift, 83.3% neutrophils. The patient's platelet count is normal. He had no coagulation studies. On chemistry, the patient is hyponatremic, with a glucose of 220. Bilirubin elevated at 1.2. ALT and AST are normal. BUN and creatinine are normal. Potassium is normal. IMAGING STUDIES: Imaging was done by means of a CT scan of the abdomen and pelvis, which shows evidence of extraluminal air in the abdomen adjacent to what appears to be inflamed loops of small bowel. ASSESSMENT AND PLAN: The patient needs an exploratory laparotomy. The operation was thoroughly explained to him including the possibility for bowel resection and possibly enterostomy. The patient due to the history of recent MT needs to be seen by a director digital prior to the operation. We will schedule his procedure. Risks and complications explained in detail. Lars Mccormack MD PF/LUIS TID: [id number] RECEIPT: [id number]
[2024-09-30] MEDS: SODIUM CHLORIDE 0.9% 1,000 ML IV SCH (08:34)
[2024-09-30 08:46] LABS: Magnesium 2.5 mg/dL (1.6-2.6)
--- NOTE | 2024-09-30 08:46 | DVHHP2 ---
History of Present Illness Reason for Visit: abdominal pain History of Present Illness Jasvir Mendoza is a 58-year-old male with past medical history of hypertension, hyperlipidemia, diabetes, IN, and Shikha-Danlos syndrome who presents to the ED with abdominal pain, nausea, vomiting, diarrhea x2 days. Patient reports that he was at home and suddenly developed abdominal pain 06/28 which brought him to the ER. Patient reports that he thinks it was due to spoiled food. Patient reports alcohol intake of 5-6 beers per day. Patient reports that he had an IN 7-8 months ago and was treated here at [facility]. Patient reports being compliant with all his medications. He denies smoking, drug use, fever, chills, back pain, shortness of breath, lightheadedness and dizziness. Cardiovascular: HTN, IN, hyperipidemia Endocrine: Diabetes Past Medical History Shikha-Danlos syndrome Past Surgical History left flank incision Family History: CVA, Other (father - IN) Smoke: No ALCOHOL: heavy Drugs: None Lives: with Family Domestic Violence: Neg Review of Systems Constitutional: No: Fever, Chills, Sweats, Weakness, Malaise, Other Eyes: No: Pain, Vision change, Conjunctivae inflammation, Eyelid inflammation, Other, Redness ENT: No: Ear pain, Ear discharge, Nose pain, Nose discharge, Nose congestion, Mouth pain, Mouth swelling, Throat pain, Throat swelling, Other Respiratory: No: Cough, Dry, Shortness of breath, SOB with excertion, Wheezing, Hemoptysis, Pleuritic Pain, Sputum, Wheezing, Other Cardiovascular: No: Chest Pain, Palpitations, Orthopnea, Paroxysmal Noc. Dyspnea, Edema, Lt Headedness, Other Gastrointestinal: Nausea, Vomiting, Abdominal Pain, Diarrhea Genitourinary: No Dysuria, No Frequency, No Incontinence, No Hematuria, No Retention, No Other Musculoskeletal: No: other, neck pain, shoulder pain, arm pain, back pain, hand pain, leg pain, foot pain Skin: No: Rash, Lesions, Jaundice, Bruising, Other Neurological: No: Weakness, Numbness, Incoordination, Change in speech, Confusion, Seizures, Other Allergies: Coded Allergies: Penicillins (Verified Allergy, Intermediate, hives, 09/30/24) Medications Current Medications Medications Dose Ordered Sig/Leti Route Start Time Stop Time Status Last Admin Dose Admin Sodium Chloride 1,000 ml @ 100 mls/hr Q10H IV 09/30/24 07:45 UNV Ondansetron HCl 4 mg Q4HP PRN IV 09/30/24 07:45 UNV Morphine Sulfate 2 mg Q4HPRN PRN IV 09/30/24 07:45 UNV Metronidazole 100 ml @ 100 mls/hr Q8HR IV 09/30/24 14:00 UNV Levofloxacin/ Dextrose 150 ml @ 100 mls/hr DAILY IV 09/30/24 10:00 UNV Exam Vital Signs Vital Signs Date Time Temp Pulse Resp B/P (MAP) Pulse Ox O2 Delivery O2 Flow Rate FiO2 09/30/24 06:00 104 15 97/64 (75) 95 09/30/24 05:34 Room Air* 0 21 09/30/24 04:35 99.6 99.6 General Appearance: Alert, Oriented X3, Cooperative, No acute distress HEENT: Atraumatic, PERRLA, EOMI, Mucous membr. moist/pink Respiratory: Clear to auscultation, Normal air movement Cardiovascular: Normal S1, Normal S2, No murmurs Abdominal: No hepatospenomegaly, Other (ngt to LIS) Extremities: No clubbing, No cyanosis, No edema, Normal pulses, No tenderness/swelling Skin: No significant lesion Neuro: Normal gait, Normal speech, Strength at 5/5 X4 ext, Normal tone, Sensation intact Psych/Mental Status: Mental status NL, Mood NL Labs/Xrays Labs Test 09/30/24 05:08 09/30/24 02:11 09/30/24 01:56 Range/Units White Blood Count 9.2 4.4-10.8 10^3/uL Red Blood Count 5.03 4.5-5.90 10^6/uL Hemoglobin 16.0 13.5-17.5 g/dL Hematocrit 46.5 41.0-53.0 % Mean Corpuscular Volume 92.4 80.0-100.0 fL Mean Corpuscular Hemoglobin 31.9 28.0-32.0 pg Mean Corpuscular Hemoglobin Concent 34.5 32.0-36.0 g/dL Red Cell Distribution Width 13.0 11.8-14.3 % Platelet Count 254 140-450 10^3/uL Mean Platelet Volume 7.9 6.9-10.8 fL Neutrophils (%) (Auto) 86.4 H 37.0-80.0 % Lymphocytes (%) (Auto) 3.9 L 10.0-50.0 % Monocytes (%) (Auto) 9.5 0.0-12.0 % Eosinophils (%) (Auto) 0.0 0.0-7.0 % Basophils (%) (Auto) 0.2 0.0-2.0 % Neutrophils # (Auto) 8.0 1.6-8.6 10 ^3/uL Lymphocytes # (Auto) 0.4 0.4-5.4 10 ^3/uL Monocytes # (Auto) 0.9 0-1.3 10 ^3/uL Eosinophils # (Auto) 0 0-0.8 10 ^3/uL Basophils # (Auto) 0 0-0.2 10 ^3/uL Nucleated Red Blood Cells 0.1 % Prothrombin Time 10.3 9.3-11.8 sec Prothrombin Time INR 0.97 0.9-1.15 Activated Partial Thromboplast Time 25.7 24.5-34.5 SEC Hemoglobin A1c 6.1 H <5.7 % A1C Lactic Acid Level 2.0 0.4-2.0 mmol/L Urine Color Yellow Yellow Urine Clarity Clear Clear Urine pH 7.0 5.0-9.0 Urine Specific [place] 1.034 1.001-1.035 Urine Protein Negative Negative Urine Ketones 1+ H Negative Urine Blood Negative Negative /uL Urine Nitrite Negative Negative Urine Bilirubin Negative Negative Urine Urobilinogen Normal Negative mg/dL Urine Leukocyte Esterase Negative Negative /uL Urine RBC <1 0 - 3 /hpf Urine WBC 1 0 - 3 /hpf Urine Squamous Epithelial Cells Few <5 /hpf Urine Bacteria None seen None Seen /hpf Urine Glucose 4+ H Normal mg/dL Sodium Level 131 #L 136-145 mmol/L Potassium Level 4.1 3.5-5.1 mmol/L Chloride Level 90 L 98-107 mmol/L Carbon Dioxide Level 28 20-31 mmol/L Anion Gap 13 5-15 Blood Urea Nitrogen 16 9-23 mg/dL Creatinine 1.01 0.700-1.30 mg/dL Glomerular Filtration Rate Calc 86 >90 mL/min BUN/Creatinine Ratio 15.8 10.0-20.0 Serum Glucose 220 #H 74-106 mg/dL Calcium Level 10.1 8.7-10.4 mg/dL Total Bilirubin 1.2 H 0.2-1.0 mg/dL Aspartate Amino Transferase (AST) < 8 L 13-40 U/L Alanine Aminotransferase (ALT) 18 7-40 U/L Alkaline Phosphatase 98 46-116 U/L Troponin I High Sensitivity < 3 L </=54 ng/L B-Type Natriuretic Peptide 10.82 0-100 pg/mL Total Protein 7.8 5.7-8.2 g/dL Albumin 5.0 H 3.2-4.8 g/dL Lipase 30 12-53 U/L Exam: CT CT AB PEL WO CON-NO ORAL OR IV History: Severe periumbilical abdominal pain Comparison Study: None available at time of dictation. TECHNIQUE: Noncontrast CT imaging of the abdomen and pelvis was obtained. The data set was subsequently reconstructed into axial images. Images were reviewed on a work station using a combination of axial and multiplanar using a variety of window levels and settings. All CT scans at this medical facility are performed using dose modulation techniques as appropriate to a performed exam including the following: Automated exposure control was utilized; adjustment of the MA and/or KV according to patient size; and use of iterative reconstruction technique. Radiation Dose Information: CT Dose: Dose-length product is 826.25 mGy*cm FINDINGS: Imaged portions of the lung bases demonstrate subsegmental atelectasis. Incompletely imaged however appears to be right diaphragmatic hernia with cranial positioning of the liver and portion of the colon. There is a paraesophageal hiatal hernia. Limited noncontrast evaluation of the liver, gallbladder, spleen, and pancreas appear otherwise unremarkable. The kidneys appear symmetric without hydronephrosis. There is a 2.1 cm left adrenal nodule the right adrenal gland appears unremarkable. There is a long segment of abnormal appearing small bowel in the mid abdomen with marked wall thickening and significant perienteric fat stranding. There is a 4.3 cm area which appears to represent a loculated collection of fecalized contents with areas of extraluminal air. There is a 14 cm fat and large bowel containing hernia along the left lateral abdominal wall without obstruction and with wide neck of 5.0 cm. No free fluid. No suspicious osseous lesion. IMPRESSION: 1. Large segment of abnormal appearing small bowel in the mid abdomen with marked fat stranding in adjacent free air suggesting infectious or ischemic process with localized perforation. 2. Large fat and large bowel containing left lateral wall hernia just below the 11th rib. 3. Indeterminate left adrenal nodule. 4. Presumed large right diaphragmatic hernia. CHEST RADIOGRAPH Indication: NG tube placement Technique: Single frontal view of the chest was obtained Comparison: XY CHEST XRAY 1 VIEW on DOS: 01/07/24 FINDINGS: Lines and Tubes: NG tube in stomach Lungs: No focal consolidation. Pleura: No effusion. No pneumothorax. Cardiomediastinal contours: Unremarkable Bones: No acute osseous abnormality. IMPRESSION: No acute cardiopulmonary disease. Assessment/Plan Assessment/Plan Assessment/Plan: Small bowel perforation likely infectious Left adrenal nodule Right large diaphragmatic hernia Gen sx cx - Dr. Ya labs ekg ct a/p echo cxr ua lactic ngt - LIS per sx antiemetics pain management dicyclomine iv abx am labs Shikha-Danlos syndrome meloxicam Hx of IN - 7-8 months ago Cards cx - need clearance for surgery hold home meds - asa - poss surgery HTN hold home meds - bisoprolol entresto HLD atorvastatin DM metformin jardiance FEN/PPX ivf npo pud ppx hold heparin for dvt ppx - poss sx Admit to tele for continuous monitoring Discussed plan of care with patient and nurse home medications held poss surgery Plan discussed with: Patient My Orders Orders - ABDIEL MILLS Procedure Category Date Status Time * Surgical Consult CONS 09/30/24 Transmitted Admit ADMIT 09/30/24 Transmitted 07:38 Allergies SETH 09/30/24 In Process 07:38 Code Status CODE 09/30/24 Transmitted 07:38 Sodium Chloride 0.9% PHA 09/30/24 Logged 07:45 Ondansetron Hcl PHA 09/30/24 Logged (Zofran) 07:45 Complete Blood Count LAB 10/01/24 Verified 04:00 Comprehensive LAB 10/01/24 Verified Metabolic Panel 04:00 Npo (Nothing By DIET 09/30/24 Transmitted Mouth) Diet Breakfast Morphine Sulfate PHA 09/30/24 Logged Injection 07:45 Metronidazole PHA 09/30/24 Logged 500mg/100ml (Flagyl 14:00 Levofloxacin 750mg PHA 09/30/24 Logged (Levaquin) 10:00 Date of Service: Sep 30, 2024 Billing Provider: THON,SALINA K INTERVENTIONAL RADIOLOGY RN Common Visit Codes: [id number] INP/OBS CARE (MOD) ABDIEL MILLS INTERVENTIONAL RADIOLOGY RN Sep 30, 2024 08:46
--- NOTE | 2024-09-30 09:09 | DVHINCON2 ---
Date Seen: Sep 30, 2024 Referring Physician JORDAN Andres Reason for Consultation Cardiac risk stratification History of Present Illness This is a 58-year-old male patient who presents to the emergency room with chief complaint of abdominal pain, nausea and vomiting for two days. The patient reports unrelieved pain and decided to come to the emergency room via personal vehicle. Upon emergency room arrival, imaging was done and reveals large segment of abnormal small bowel in the mid abdomen with free air suggesting ischemic process with localized perforation. Cardiology has now been consulted for cardiac risk stratification pending surgical intervention. Initial twelve lead electrocardiogram reveals sinus tachycardia (with artifact). Significant past medical history includes congestive heart failure, history of possible Takotsubo's syndrome, history myocardial infarction, hypertension, dyslipidemia, type 2 diabetes mellitus, Shikha-Danlos syndrome, alcohol abuse, and obesity. Of note, the patient underwent a coronary angiogram with left heart catheterization on 01/08/24 which revealed mild atherosclerotic plaque including the proximal and mid LAD without significant stenosis in which no catheter based intervention was done. 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. Past Medical History Past medical history reviewed. No other significant than mentioned above. Past Surgical History Abdominal lump removal in 2022 Reconstructive lip surgery secondary to a dog bite Family History: Diabetes mellitus G8 FATHER FH: heart attack G8 MOTHER G8 FATHER Family History Family history reviewed. Social History Patient denies any nicotine or tobacco use Patient denies any illicit drug use Patient admits to drinking 5-6 beers per day Allergies: Coded Allergies: Penicillins (Verified Allergy, Intermediate, hives, 09/30/24) Home Meds Active Scripts Sacubitril-Valsartan (Entresto 24-26 mg) 1 Tab Tab, 1 TAB PO BID for 30 Days, #60 TAB 30 Refills Prov:BURNSKONSTANTIN Leslie T DO 01/10/24 Metoprolol Tartrate (Lopressor) 25 Mg Tb, 12.5 MG PO BID for 30 Days, #30 TAB 3 Refills Prov:BURNSKONSTANTIN Leslie T DO 01/10/24 Empagliflozin (Jardiance) 10 Mg Tab, 10 MG PO DAILY for 30 Days, #30 TAB 3 Refills Prov:BURNSKONSTANTIN Leslie T DO 01/10/24 Atorvastatin Calcium (ATORVASTATIN CALCIUM) 40 Mg Tab, 1 TAB PO DAILY for 30 Days, #30 TAB 5 Refills Prov:BURNS,KONSTANTIN T DO 01/10/24 Aspirin (Aspirin Low Dose) 81 Mg Tab, 81 MG PO DAILY for 30 Days, #30 TAB 3 Refills Prov:KONSTANTIN BURNS DO 01/10/24 Reported Medications Meloxicam (Meloxicam) 15 Mg Tab, 1 TAB PO DAILY 01/08/24 Lisinopril (Lisinopril) 10 Mg Tab, 1 TAB PO DAILY 01/08/24 Metformin Hydrochloride (Metformin Hcl) 1,000 Mg Tab, 1 TAB PO BID 01/08/24 Current Medications Current Medications Medications (Trade) Dose Ordered Sig/Leti Route PRN Reason Start Time Stop Time Status Last Admin Sodium Chloride 1,000 ml @ 100 mls/hr Q10H IV 09/30/24 07:45 09/30/24 08:34 Ondansetron HCl (Zofran) 4 mg Q4HP PRN IV NAUSEA / VOMITING 09/30/24 07:45 Morphine Sulfate 2 mg Q4HPRN PRN IV SEVERE PAIN (7-10 PAIN SCALE) 09/30/24 07:45 Metronidazole 100 ml @ 100 mls/hr Q8HR IV 09/30/24 14:00 Levofloxacin/ Dextrose 150 ml @ 100 mls/hr DAILY IV 09/30/24 10:00 Pantoprazole Sodium (Protonix) 40 mg DAILY IV 09/30/24 10:00 UNV Review of Systems Constitutional: No symptom reported Ears, Nose, & Throat: No symptom reported Eyes: No symptom reported Neurological: No symptoms reported Pulmonary/Respiratory: No symptoms reported Cardiovascular: No symptom reported Gastrointestinal: Abdominal pain, nausea, vomiting Genitourinary: No symptom reported Musculoskeletal: No symptom reported Skin: No symptom reported Psychiatric: No symptom reported Endocrine: No symptom reported Hematologic/Lymphatic: No symptom reported Vital Signs Vital Signs Date Time Temp Pulse Resp B/P (MAP) Pulse Ox O2 Delivery O2 Flow Rate FiO2 09/30/24 06:00 104 15 97/64 (75) 95 09/30/24 05:34 Room Air* 0 21 09/30/24 04:35 99.6 99.6 Physical Exam General Appearance: Cooperative. Obese Pulmonary/Respiratory: Clear, bilateral breaths sounds. Cardiovascular/Chest: Regular rate and rhythm. Peripheral Pulses: 2+ Radial (R). 2+ Radial (L). 2+ Pedal (R). 2+ Pedal (L) Abdominal Exam: Normal bowel sounds. Ankle Exam: Negative ankle edema Lower extremities: Negative lower extremity edema Neuro/Mental Status: A/OX4, coherent. Thoughts/Psych: Normal thought pattern. Appropriate mood and affect. Good judgment and insight. Appearance: No acute distress. Skin Exam: Normal inspection. Normal color. Warm and dry. Labs/Diagnostic Data Labs Test 09/30/24 05:08 09/30/24 02:11 09/30/24 01:56 Range/Units White Blood Count 9.2 4.4-10.8 10^3/uL Red Blood Count 5.03 4.5-5.90 10^6/uL Hemoglobin 16.0 13.5-17.5 g/dL Hematocrit 46.5 41.0-53.0 % Mean Corpuscular Volume 92.4 80.0-100.0 fL Mean Corpuscular Hemoglobin 31.9 28.0-32.0 pg Mean Corpuscular Hemoglobin Concent 34.5 32.0-36.0 g/dL Red Cell Distribution Width 13.0 11.8-14.3 % Platelet Count 254 140-450 10^3/uL Mean Platelet Volume 7.9 6.9-10.8 fL Neutrophils (%) (Auto) 86.4 H 37.0-80.0 % Lymphocytes (%) (Auto) 3.9 L 10.0-50.0 % Monocytes (%) (Auto) 9.5 0.0-12.0 % Eosinophils (%) (Auto) 0.0 0.0-7.0 % Basophils (%) (Auto) 0.2 0.0-2.0 % Neutrophils # (Auto) 8.0 1.6-8.6 10 ^3/uL Lymphocytes # (Auto) 0.4 0.4-5.4 10 ^3/uL Monocytes # (Auto) 0.9 0-1.3 10 ^3/uL Eosinophils # (Auto) 0 0-0.8 10 ^3/uL Basophils # (Auto) 0 0-0.2 10 ^3/uL Nucleated Red Blood Cells 0.1 % Prothrombin Time 10.3 9.3-11.8 sec Prothrombin Time INR 0.97 0.9-1.15 Activated Partial Thromboplast Time 25.7 24.5-34.5 SEC Hemoglobin A1c 6.1 H <5.7 % A1C Lactic Acid Level 2.0 0.4-2.0 mmol/L Magnesium Level 2.5 1.6-2.6 mg/dL Triglycerides Level 78 < 150 mg/dL Cholesterol Level 141 < 200 mg/dL LDL Cholesterol 59 < 100 mg/dL HDL Cholesterol 56 40-59 mg/dL Thyroid Stimulating Hormone (TSH) 1.51 0.55-4.78 uIU/mL Urine Color Yellow Yellow Urine Clarity Clear Clear Urine pH 7.0 5.0-9.0 Urine Specific [place] 1.034 1.001-1.035 Urine Protein Negative Negative Urine Ketones 1+ H Negative Urine Blood Negative Negative /uL Urine Nitrite Negative Negative Urine Bilirubin Negative Negative Urine Urobilinogen Normal Negative mg/dL Urine Leukocyte Esterase Negative Negative /uL Urine RBC <1 0 - 3 /hpf Urine WBC 1 0 - 3 /hpf Urine Squamous Epithelial Cells Few <5 /hpf Urine Bacteria None seen None Seen /hpf Urine Glucose 4+ H Normal mg/dL Sodium Level 131 #L 136-145 mmol/L Potassium Level 4.1 3.5-5.1 mmol/L Chloride Level 90 L 98-107 mmol/L Carbon Dioxide Level 28 20-31 mmol/L Anion Gap 13 5-15 Blood Urea Nitrogen 16 9-23 mg/dL Creatinine 1.01 0.700-1.30 mg/dL Glomerular Filtration Rate Calc 86 >90 mL/min BUN/Creatinine Ratio 15.8 10.0-20.0 Serum Glucose 220 #H 74-106 mg/dL Calcium Level 10.1 8.7-10.4 mg/dL Total Bilirubin 1.2 H 0.2-1.0 mg/dL Aspartate Amino Transferase (AST) < 8 L 13-40 U/L Alanine Aminotransferase (ALT) 18 7-40 U/L Alkaline Phosphatase 98 46-116 U/L Troponin I High Sensitivity < 3 L </=54 ng/L B-Type Natriuretic Peptide 10.82 0-100 pg/mL Total Protein 7.8 5.7-8.2 g/dL Albumin 5.0 H 3.2-4.8 g/dL Lipase 30 12-53 U/L Assessment Preprocedural cardiovascular examination Chronic HFrEF, NYHA class II (previous echo shows EF 35-40% on 01/08/24) History myocardial infarction History of possible Takotsubo's syndrome Hypertension Dyslipidemia Type 2 diabetes mellitus Shikha-Danlos syndrome Alcohol abuse Obesity Plan/Recommendation We will continue with the following plan/recommendations (Dr. Dewitt): Previous transthoracic echocardiogram from 01/08/2024 reveals EF 35-40% with anteroapical and mid inferolateral apical akinesia. New transthoracic ech ocardiogram ordered today, not completed prior to being taken to preop. Chest x-ray on this admission reveals no acute cardiopulmonary disease. Revised cardiac risk index (Dale criteria): 3 points (15.0% risk of major cardiac event). Patient has an underlying history of congestive heart failure. Prior to admission, the patient reports a good functional capacity. Per Cardiology st andpoint, the patient is at a high risk for moderate risk surgery. There is no additional cardiac workup indicated prior to surgery. Thank you for allowing us to care for this patient. Please call with any questions or concerns. Thank you for allowing us to care for this patient. Please call with any questions or concerns. Critical care time spent: 40 minutes This medical document was created using an electronic medical record system with voice recognition software and computerized dictation system. Although this document has been carefully reviewed, there might still be some phonetic and t ypographical errors. Occasional wrong-word or ``sound-alike substitutions may have occurred due to the inherent limitations of voice recognition software. These areas are purely typographical due to imperfections of the software programs and do not reflect any compromise in the patient's medical care. Please read the chart carefully and recognize, using context, where these song bstitutions have occurred. Plan discussed with: Patient NYHA Physical activity limitations: Class2(Slight)fatigue,sob Date of Service: Sep 30, 2024 Billing Provider: GREGG DEWITT MD Cardiology Common Codes: [id number] INP/OBS CARE (High) Cardiology Consultation Codes: [id number] CONSULT <45MIN CAROL TALBOT Sep 30, 2024 09:09
[2024-09-30] MEDS: PANTOPRAZOLE 40 MG/10 ML VIAL INJ IV SCH (10:00)
[2024-09-30] MEDS ORDERED: levoFLOXacin 750MG 150 ML IV SCH (10:00)
[2024-09-30] MEDS ORDERED: HYDROmorphone HCL 2 MG/ML VL/or syr ONE (10:24)
[2024-09-30] MEDS ORDERED: fentaNYL CITRATE 100 MCG/2 ML VL ONE (10:24)
[2024-09-30] MEDS ORDERED: MIDAZOLAM HCL 2MG/2ML 2ml VIAL (1mg/ml) ONE (10:24)
[2024-09-30] MEDS: SUCCINYLCHOLINE CHLORIDE 20 MG/ML 10ML VIAL IV ONE (10:46)
[2024-09-30] MEDS ORDERED: DexAMETHasone SOD PHOS 10MG/1ML VIAL INJ ONE (11:09)
[2024-09-30] MEDS ORDERED: ETOMIDATE (2MG/ML) 20ML VIAL IV ONE (11:09)
[2024-09-30] MEDS ORDERED: levoFLOXacin 500MG 100 ML IV ONE (11:15)
--- NOTE | 2024-09-30 11:15 | DVHSR ---
APPROVED REPORT EXAM: Two-dimensional and M-mode echocardiogram with Doppler and color Doppler. Blood Pressure: 95/54 mmHg INDICATION Pre-Op RISK FACTORS Height: 66, Weight: 198 DIMENSIONS LVDd4.9 (3.8-5.7cm)LA (2D)3.3 (1.9-4.0cm)Aortic Root3.4 (2.0-3.7cm) LVDs3.6 (2.5-4.0cm)LA (MM) (1.9-4.0cm)Aortic Cusp Exc1.6 (1.5-2.0cm) EF (%) 50.0 (55-70%)Rt. Atrium4.1 (1.9-4.0cm)Asc. Aorta cm Mitral Valve MitralMitral Stenosis E wave0.69m/sMV Mean GR.mmHg A wave0.84m/sMV Peak GR.mmHg E/A ratio0.82D MVAcm2 DECEL [id number] 1/2 Gtvm48rs IVRTmsDop MVA3.05cm2 Aortic Valve Aortic ValveAortic Stenosis V11.81m/Brandi Mean GR.7mmHg V21.82m/Brandi Peak GR.13mmHg LVOT Diameter2.0 (1.8-2.4cm)Doppler AVA3.12cm2 Pulmonic Valve V21.13m/s Other Information Technically limited study due to body habitus and patient position. Conclusion Normal left ventricular size and dimension. Normal ventricular systolic pressure estimate ejection f raction 55%. There is a grade 1 diastolic dysfunction. Normal right ventricular size and dimension. Normal right ventricular systolic function. Normal biatrial size and dimension. Normal aortic valve structure and function. Normal mitral valve structure function Normal tricuspid valve structure function. The pulmonary valve is grossly normal. No pericardial effusion.
[2024-09-30] MEDS: levoFLOXacin 250MG 50 ML IV SCH (11:45)
[2024-09-30] MEDS ORDERED: ePHEDrine SULFATE 50 MG/ML AMP IV PRN (12:00)
[2024-09-30] MEDS ORDERED: MORPHINE SULFATE 4 MG/ML SYR/VIAL IV PRN (12:00)
[2024-09-30] MEDS ORDERED: hydrALAZINE HCL 20 MG/ML VL IV PRN (12:00)
[2024-09-30] MEDS ORDERED: MIDAZOLAM HCL 2MG/2ML 2ml VIAL (1mg/ml) IV PRN (12:00)
[2024-09-30] MEDS: BUPIVACAINE W/ EPINEPH 0.5% MPF 30ML VIAL IJ ONE (12:28)
[2024-09-30] MEDS: HYDROMORPHONE HCL 1 MG/ML INJ IV ONE (12:30)
[2024-09-30] MEDS ORDERED: ONDANSETRON HCL 4 MG/2 ML VIAL IV PRN (12:30)
[2024-09-30] MEDS: D5W/SOD CHL 0.45%/KCL 20MEQ 1,000 ML IV SCH (12:30)
[2024-09-30] MEDS: HYDROmorphone HCL 2 MG/ML VL/or syr IV PRN (13:11)
[2024-09-30] MEDS: ACCU-CHEK COMFORT CURVE STRIP VI ONE (13:30)
[2024-09-30 13:55] LABS: Base Excess -8.1 mmol/L (-2.0-3.0)
[2024-09-30] MEDS ORDERED: metroNIDAZOLE 500MG/100ML 100 ML IV SCH (14:00)
--- NOTE | 2024-09-30 15:40 | DVHPN2 ---
Assessment/Plan Assessment/Plan Progress note Subjective 58M with HFrEF with abdominal pain found to have bowel perforation. Patient had exlap. Seen patient today during rounds s/p exlap, patient on rebreather, mentating well, initially had chest pain however later patient localized it to his stomach. Objective Physical exam Alert, oriented x3 Obese PERRLA no JVD Clear breath sounds S1-S2 RRR Abdomen packed Moving all four extremities No LE edema Lab Hb 16 a1c 6.1 na 131 7.28/38/81 Imaging CTAP IMPRESSION: 1. Large segment of abnormal appearing small bowel in the mid abdomen with marked fat stranding in adjacent free air suggesting infectious or ischemic process with localized perforation. 2. Large fat and large bowel containing left lateral wall hernia just below the 11th rib. 3. Indeterminate left adrenal nodule. 4. Presumed large right diaphragmatic hernia. CXR clear Assessment and plan bowel perforation s/p exploratory laparotomy chronic systolic heart failure heart failure with improved ejection fraction type 2 DM christal-danlos alcohol use obesity HTN admit to [facility] watch respiratory and hemodynamic closely pain management if chest pain persists, repeat EKG, trop, echo EF improved, hold GDMT for now perishock CIWA protocol ativan PRN aspiration precaution incentive spirometry Replete electrolytes Diet NPO DVT prophylaxis SCD 105 minutes critical care time spent on this patient including evaluation, chart review, formulating plan and communication with team, excluding any procedures or point of care imaging Plan discussed with: Patient My Orders Orders - SALVADOR SANDS MD Procedure Category Date Status Time Acetaminophen Tablet PHA 09/30/24 Transmitted (Tylenol Tablet) 22:00 Troponin-I Hs LAB 09/30/24 Transmitted 15:31 Phosphorus LAB 10/01/24 Verified 04:00 Magnesium LAB 10/01/24 Verified 04:00 Date of Service: Sep 30, 2024 Billing Provider: SALVADOR SANDS MD Common Visit Codes: [id number] CARE 30-74 MIN, [id number] CARE-EACH +30MIN SALVADOR SANDS MD Sep 30, 2024 15:40
[2024-09-30] MEDS ORDERED: LORazepam 2MG/ML-1ML VIAL IV PRN (15:45)
[2024-09-30] MEDS ORDERED: FOLIC ACID 1 MG in D5W 5% 50 ML INJ SCH (15:45)
[2024-09-30] MEDS ORDERED: DEXTROSE (50%) 50ML SYRG IV PRN (15:45)
[2024-09-30] MEDS: fentaNYL CITRATE 100 MCG/2 ML VL ONE (16:35)
[2024-09-30] MEDS: fentaNYL CITRATE 100 MCG/2 ML VL IV PRN (16:38)
[2024-09-30] MEDS: ACCU-CHEK COMFORT CURVE STRIP VI SCH (18:00)
[2024-09-30] MEDS: InsuLIN REG 1unit/0.01ml Soln (100units/ml) SC SCH (18:00)
[2024-09-30] MEDS: MORPHINE SULFATE INJ 2 MG/ml SYRG IV PRN (18:44)
[2024-09-30] MEDS: metroNIDAZOLE 500MG/100ML 100 ML IV SCH (21:54)
[2024-09-30] MEDS: ACETAMINOPHEN 325 MG TAB PO SCH (22:00)
[2024-10-01] VITALS (23 sets, daily range): BP systolic 108–142; BP diastolic 65–92; PULSE 71–95; RESP 11–28; TEMP 97.4–98.8; O2SAT 91–99
--- NOTE | 2024-10-01 01:50 | DVHOP ---
DATE OF SURGERY: 09/30/2024 PREOPERATIVE DIAGNOSES: Pneumoperitoneum, perforated viscus. POSTOPERATIVE DIAGNOSES: Pneumoperitoneum, abdominal sepsis, perforated jejunal diverticulum. SURGEON: Lars Mccormack MD IMPLEMENTATION ADVISOR: Jerald Andres. ANESTHESIA: General endotracheal. ANESTHESIOLOGIST: Dr. Soria. PROCEDURES: Exploratory laparotomy, segmental jejunal resection, jejunojejunostomy, evacuation of peritoneal abscess. DESCRIPTION OF PROCEDURE: Under general endotracheal anesthesia, with the skin prepped and draped, a midline incision was made and purulent fluid was encountered. This was sampled for cultures and sensitivities. The proximal jejunum, after exploring the entire abdomen, was found to have an indurated segment, which contained perforation of a mass-like structure on the mesenteric border of the bowel with a suspicion of perforated jejunal diverticulum as there were numerous other diverticula in the entire length of the jejunum. This segment was submitted for histopathologic examination. It was reported as showing a perforated jejunal diverticulitis. End to end anastomosis between the remaining jejunum was accomplished using 3-0 Monocryl and 3-0 Prolene sutures. Mesenteric defect was approximated using 2-0 Monocryl suture. Abdomen was profusely irrigated. Following hemostasis, a 10 mm Vinh-Liu drain was inserted into the peritoneal cavity and exteriorized and secured with a 2-0 nylon suture. Following assurance of complete hemostasis, the patient's fascia was closed using #1 double-stranded PDS suture and 0 Monocryl sutures. Skin approximated using metallic skin eduardo. The patient remained hemodynamically stable throughout the procedure, left the operating room following an accurate needle and sponge count. No family members were present in the waiting room. Lars Mccormack MD PF/EDWIN TID: [id number] RECEIPT: [id number]
[2024-10-01 05:52] LABS: Basophils # (auto) 0 10 ^3/uL (0-0.2); Eosinophils # (auto) 0 10 ^3/uL (0-0.8); Hematocrit 39.3 % (41.0-53.0); Hemoglobin 13.3 g/dL (13.5-17.5); Lymphocytes # (auto) 0.4 10 ^3/uL (0.4-5.4); Lymphocytes % (auto) 5.8 % (10.0-50.0); Mean Corpuscular Hemoglobin 31.8 pg (28.0-32.0); Mean Corpuscular Hgb Conc. 33.7 g/dL (32.0-36.0); Mean Corpuscular Volume 94.3 fL (80.0-100.0); Monocytes # (auto) 0.8 10 ^3/uL (0-1.3); Monocytes % (auto) 11.5 % (0.0-12.0); Neutrophils # (auto) 5.8 10 ^3/uL (1.6-8.6); Neutrophils % (auto) 82.7 % (37.0-80.0); Platelet Count (auto) 227 10^3/uL (140-450); Red Blood Cells 4.17 10^6/uL (4.5-5.90); Red Cell Distribution Width 13.4 % (11.8-14.3)
[2024-10-01 06:12] LABS: Alanine Aminotransferase 12 U/L (7-40); Alkaline Phosphatase 68 U/L (46-116); Anion Gap 7 (5-15); Aspartate Aminotransferase 15 U/L (13-40); BUN/Creatinine Ratio 13.3 (10.0-20.0); Bilirubin, Total 0.6 mg/dL (0.2-1.0); Blood Urea Nitrogen 10 mg/dL (9-23); Carbon Dioxide 25 mmol/L (20-31); Chloride 102 mmol/L (98-107); Potassium 4.5 mmol/L (3.5-5.1); Total Protein 6.7 g/dL (5.7-8.2)
[2024-10-01 06:13] LABS: Glucose 147 mg/dL (74-106); Magnesium 2.7 mg/dL (1.6-2.6); Phosphorus 2.2 mg/dL (2.4-5.1); Sodium 134 mmol/L (136-145)
[2024-10-01] MEDS ORDERED: PANTOPRAZOLE 40 MG/10 ML VIAL INJ IV SCH (06:30)
[2024-10-01] MEDS: THIAMINE 100mg/ml INJ (200mg/2ml VIAL) IV SCH (08:27)
[2024-10-01] MEDS: levoFLOXacin 250MG 100 ML IV SCH (08:28)
[2024-10-01] MEDS ORDERED: LACTATED RINGER'S 1,000 ML IV SCH (09:30)
[2024-10-01] MEDS ORDERED: levoFLOXacin 750MG 150 ML IV SCH (10:00)
--- NOTE | 2024-10-01 10:13 | DVHPN2 ---
Assessment/Plan Assessment/Plan Progress note Subjective 58M with HFrEF with abdominal pain found to have bowel perforation. Patient had exlap. Seen patient today during rounds s/p exlap POD 2, high o2 recs, unstable to transfer, high risk for withdrawal. has not passed bowel Objective Physical exam Alert, oriented x3 Obese PERRLA no JVD Clear breath sounds S1-S2 RRR Abdomen packed, normal BS Moving all four extremities No LE edema Lab Hb 16 a1c 6.1 na 131 7.28/38/81 Imaging CTAP IMPRESSION: 1. Large segment of abnormal appearing small bowel in the mid abdomen with marked fat stranding in adjacent free air suggesting infectious or ischemic process with localized perforation. 2. Large fat and large bowel containing left lateral wall hernia just below the 11th rib. 3. Indeterminate left adrenal nodule. 4. Presumed large right diaphragmatic hernia. CXR clear Assessment and plan bowel perforation s/p exploratory laparotomy chronic systolic heart failure heart failure with improved ejection fraction type 2 DM christal-danlos alcohol use obesity HTN blood loss anemia hypophos admit to [facility] watch respiratory and hemodynamic closely pain management if chest pain persists, repeat EKG, trop, echo EF improved, hold GDMT for now perishock can resume when more stable CIWA protocol ativan PRN aspiration precaution incentive spirometry trend HH IV hydration when NPO Replete electrolytes Diet NPO DVT prophylaxis SCD 55 minutes critical care time spent on this patient including evaluation, chart review, formulating plan and communication with team, excluding any procedures or point of care imaging Plan discussed with: Patient My Orders Orders - SALVADOR SANDS MD Procedure Category Date Status Time Acetaminophen Tablet PHA 09/30/24 In Process (Tylenol Tablet) 22:00 Glucose Blood PHA 09/30/24 In Process (Accu-Chek Comfort 18:00 Insulin R (Human) PHA 09/30/24 In Process (Insulin R) 18:00 Dextrose 50% Syringe PHA 09/30/24 In Process 15:45 Thiamine Inj PHA 10/01/24 In Process 10:00 Lorazepam 2mg/Ml Inj PHA 09/30/24 In Process (Ativan Inj) 15:45 Etoh Withdrawal SETH 09/30/24 In Process Assessment 15:40 Folic Acid PHA 10/01/24 In Process 10:00 Mrsa Screen LOU 09/30/24 In Process 18:36 Lactated Ringer's PHA 10/01/24 In Process 09:30 Date of Service: Oct 01, 2024 Billing Provider: SALVADOR SANDS MD Common Visit Codes: [id number] CARE 30-74 MIN SALVADOR SANDS MD Oct 01, 2024 10:13
[2024-10-01] MEDS: D5W/SOD CHL 0.45%/KCL 20MEQ 1,000 ML IV SCH (10:15)
[2024-10-01] MEDS: ONDANSETRON HCL 4 MG/2 ML VIAL IV PRN (10:48)
[2024-10-01] MEDS: FOLIC ACID 1 MG in D5W 5% 50 ML INJ SCH (12:13)
[2024-10-01] MEDS: SODIUM PHOSPHATES 40 MEQ in D5W 5% 250 ML IV ONE (12:59)
[2024-10-01] MEDS: ACETAMINOPHEN IV 1000 MG/100ML (10MG/ML) IV SCH (17:46)
[2024-10-02] VITALS (23 sets, daily range): BP systolic 110–146; BP diastolic 71–92; PULSE 65–103; RESP 17–31; TEMP 97–98.7; O2SAT 90–98
--- NOTE | 2024-10-02 09:27 | DVHPN2 ---
Progress Note Date Seen: Oct 02, 2024 Medical Necessity Reason Pt with a Central, PICC or Fol: No Objective vital signs Vital Sign Date Time Temp Pulse Resp B/P (MAP) Pulse Ox O2 Delivery O2 Flow Rate FiO2 10/02/24 07:00 103 29 130/88 (102) 94 10/02/24 04:00 98.1 98.1 10/01/24 20:00 Oxymizer 6 N/A Total Intake and Output 10/01/24 10/01/24 10/02/24 15:00 23:00 07:00 Intake Total 347.7 ml 1397.5 ml 1240 ml Output Total 1115 ml 1300 ml Balance 347.7 ml 282.5 ml -60 ml medications Current Medications Medications Dose Ordered Sig/Leti Route Start Time Stop Time Status Last Admin Dose Admin Ondansetron HCl 4 mg Q4HP PRN IV 09/30/24 07:45 10/01/24 10:48 4 MG Morphine Sulfate 2 mg Q4HPRN PRN IV 09/30/24 07:45 10/01/24 08:27 2 MG Metronidazole 100 ml @ 100 mls/hr Q8HR IV 09/30/24 14:00 10/02/24 06:09 100 MLS/HR Pantoprazole Sodium 40 mg DAILY IV 09/30/24 10:00 10/01/24 10:00 40 MG Levofloxacin 100 ml @ 100 mls/hr DAILY IV 10/01/24 10:00 10/01/24 08:28 100 MLS/HR Acetaminophen 650 mg Q8HR PO 09/30/24 22:00 09/30/24 22:00 650 MG Diagnostic Test (Pha) 1 strip Q6HR 09/30/24 18:00 10/02/24 06:11 1 STRIP Insulin Human Regular Q6HR SC 09/30/24 18:00 10/01/24 17:47 2 UNITS Dextrose 50 ml UD PRN IV 09/30/24 15:45 Thiamine HCl 100 mg DAILY IV 10/01/24 10:00 10/01/24 08:27 100 MG Lorazepam 1 mg Q2HPRN PRN IV 09/30/24 15:45 Folic Acid 1 mg/ Dextrose 50.2 ml @ 200.8 mls/ hr DAILY INJ 10/01/24 10:00 10/01/24 12:13 200.8 MLS/HR Potassium Chloride/Dextrose/ Sod Cl 1,000 ml @ 120 mls/hr Q8H20M IV 10/01/24 10:15 10/02/24 01:46 120 MLS/HR Acetaminophen 1,000 mg Q8HR IV 10/01/24 14:00 10/02/24 13:59 10/02/24 06:10 1,000 MG laboratory and microbiology Laboratory Tests 10/01/24 04:35 Test 10/01/24 04:35 Range/Units Serum Glucose 147 H 74-106 mg/dL Problem List/Assessment/Plan Problem List/Assessment/Plan 10/02/24AFEBRILE, NORMOTENSIVEM WOUND CLEAN AND WELL APPROXIMATED, DRAINAGE SEROSANGUINEOUS, ABDOMEN NON DISTENDED, APPROPRIATELY TENDER, NEEDS TO START AMBULATION, NO FLATUS, KEEP NPO/ NGT IN Plan discussed with: Patient AKASH ALVAREZ MD Oct 02, 2024 09:27
--- NOTE | 2024-10-02 10:10 | DVHPN2 ---
Assessment/Plan Assessment/Plan Progress note Subjective 58M with HFrEF with abdominal pain found to have bowel perforation. Patient had exlap. Seen patient today during rounds s/p exlap POD 3,on oximyzer 8LPM, sating 92, doing IR. No gas or BM yet, for PT today. Objective Physical exam Alert, oriented x3 Obese PERRLA no JVD Clear breath sounds S1-S2 RRR Abdomen stapled, normal BS Moving all four extremities No LE edema Lab Hb 16 a1c 6.1 na 131 7.28/38/81 Imaging CTAP IMPRESSION: 1. Large segment of abnormal appearing small bowel in the mid abdomen with marked fat stranding in adjacent free air suggesting infectious or ischemic process with localized perforation. 2. Large fat and large bowel containing left lateral wall hernia just below the 11th rib. 3. Indeterminate left adrenal nodule. 4. Presumed large right diaphragmatic hernia. CXR clear Assessment and plan bowel perforation s/p exploratory laparotomy chronic systolic heart failure heart failure with improved ejection fraction type 2 DM christal-danlos alcohol use obesity HTN blood loss anemia hypophos admit to [facility] maintain spo2 >88 watch respiratory and hemodynamic closely pain management tylenol IV and toradol EF improved, hold GDMT for now perishock can resume when more stable CIWA protocol ativan PRN aspiration precaution incentive spirometry PT eval trend HH IV hydration when NPO repeat CXR Replete electrolytes Diet NPO DVT prophylaxis lovenox 57 minutes critical care time spent on this patient including evaluation, chart review, formulating plan and communication with team, excluding any procedures or point of care imaging Plan discussed with: Patient My Orders Orders - SALVADOR SANDS MD Procedure Category Date Status Time Acetaminophen Iv PHA 10/01/24 In Process ([facility]) 14:00 Date of Service: Oct 02, 2024 Billing Provider: SALVADOR SANDS MD Common Visit Codes: [id number] CARE 30-74 MIN SALVADOR SANDS MD Oct 02, 2024 10:10
--- NOTE | 2024-10-02 11:23 | DVH ---
CHEST RADIOGRAPH Indication: interval Technique: Single frontal view of the chest was obtained COMPARISON: XY CHEST XRAY 1 VIEW on DOS: 09/30/24, FINDINGS: Lines and Tubes: Enteric tube terminates below the diaphragm. Lungs: Worsening bibasilar airspace disease. Pleura: No effusion. No pneumothorax. Cardiomediastinal contours: Obscured Bones: Unremarkable IMPRESSION: 1. Worsening bibasilar airspace disease.
[2024-10-02 11:55] LABS: Base Excess -1.4 mmol/L (-2.0-3.0)
[2024-10-02] MEDS: KETOROLAC TROMETH 30 MG/ML 1ML VIAL IV SCH (12:21)
[2024-10-03] VITALS (23 sets, daily range): BP systolic 110–145; BP diastolic 62–87; PULSE 61–94; RESP 12–24; TEMP 97.7–98.8; O2SAT 94–100
[2024-10-03 05:22] LABS: Basophils # (auto) 0 10 ^3/uL (0-0.2); Basophils % (auto) 0.2 % (0.0-2.0); Eosinophils # (auto) 0.2 10 ^3/uL (0-0.8); Hematocrit 33.9 % (41.0-53.0); Hemoglobin 11.5 g/dL (13.5-17.5); Lymphocytes # (auto) 0.5 10 ^3/uL (0.4-5.4); Lymphocytes % (auto) 11.3 % (10.0-50.0); Mean Corpuscular Hemoglobin 31.5 pg (28.0-32.0); Mean Corpuscular Hgb Conc. 33.8 g/dL (32.0-36.0); Mean Corpuscular Volume 93.1 fL (80.0-100.0); Monocytes # (auto) 0.5 10 ^3/uL (0-1.3); Monocytes % (auto) 10.8 % (0.0-12.0); Neutrophils # (auto) 3.2 10 ^3/uL (1.6-8.6); Neutrophils % (auto) 73.7 % (37.0-80.0); Nucleated Red Blood Cells % 0.1 %; Platelet Count (auto) 231 10^3/uL (140-450); Red Blood Cells 3.64 10^6/uL (4.5-5.90); Red Cell Distribution Width 13.2 % (11.8-14.3); White Blood Cell 4.4 10^3/uL (4.4-10.8)
[2024-10-03 05:29] LABS: Chloride 100 mmol/L (98-107); Potassium 5.1 mmol/L (3.5-5.1)
[2024-10-03 05:30] LABS: Anion Gap 4 (5-15); Carbon Dioxide 25 mmol/L (20-31)
[2024-10-03 05:36] LABS: Magnesium 2.3 mg/dL (1.6-2.6)
[2024-10-03 05:50] LABS: Calcium 8.7 mg/dL (8.7-10.4); Glucose 160 mg/dL (74-106); Phosphorus 2.1 mg/dL (2.4-5.1); Sodium 129 mmol/L (136-145)
[2024-10-03 06:53] LABS: Blood Urea Nitrogen 9 mg/dL (9-23)
[2024-10-03] MEDS ORDERED: VANCOMYCIN PER PHARMACY 0 MG IV SCH (08:15)
[2024-10-03] MEDS: VANCOMYCIN 1GM/250ML KIT 250 ML IV SCH ×2 (10:11→22:54)
[2024-10-03] MEDS: ENOXAPARIN SOD 40 MG/0.4 ML SYRINGE SC SCH (10:12)
--- NOTE | 2024-10-03 10:32 | MEDREC ---
[facility] Intervention Section I [facility] Intervention: Review courses of therapy (PLEASE CONSIDER D/C FLAGYL SINCE BOTH ZOSYN AND FLAGYL COVER FOR ANAEROBE ORGANISMS (DUPLICATE) ) HOWARD JOHNSTON PHARMACIST Oct 03, 2024 10:32
[2024-10-03] MEDS: PIPERACILLIN-TAZOB 3.375GM 100 ML IV SCH (12:42)
[2024-10-03] MEDS: SODIUM CHLORIDE 0.9% 1,000 ML IV SCH (14:00)
--- NOTE | 2024-10-03 14:56 | DVHPN2 ---
Assessment/Plan Assessment/Plan Progress note Subjective 58M with HFrEF with abdominal pain found to have bowel perforation. Patient had exlap. Seen patient today during rounds s/p exlap POD 4,on oxymyzer 6LPM, POCUS done, no PLEF. still nt passing gas or stool. unstable for transfer Objective Physical exam Alert, oriented x3 Obese PERRLA no JVD Clear breath sounds S1-S2 RRR Abdomen stapled, normal BS Moving all four extremities No LE edema Lab Hb 16 a1c 6.1 na 131 7.28/38/81 Imaging CTAP IMPRESSION: 1. Large segment of abnormal appearing small bowel in the mid abdomen with marked fat stranding in adjacent free air suggesting infectious or ischemic process with localized perforation. 2. Large fat and large bowel containing left lateral wall hernia just below the 11th rib. 3. Indeterminate left adrenal nodule. 4. Presumed large right diaphragmatic hernia. CXR clear Assessment and plan bowel perforation s/p exploratory laparotomy chronic systolic heart failure heart failure with improved ejection fraction type 2 DM christal-danlos alcohol use obesity HTN blood loss anemia hypophos admit to [facility] maintain spo2 >88 watch respiratory and hemodynamic closely pain management tylenol IV and toradol EF improved, hold GDMT for now perishock can resume when more stable CIWA protocol ativan PRN aspiration precaution incentive spirometry PT eval trend HH IV hydration when NPO repeat CXR Replete electrolytes Diet NPO DVT prophylaxis lovenox 45 minutes critical care time spent on this patient including evaluation, chart review, formulating plan and communication with team, excluding any procedures or point of care imaging Plan discussed with: Patient My Orders Orders - SALVADOR SANDS MD Procedure Category Date Status Time Respiratory Culture LOU 10/03/24 Logged W/ Gs 08:14 Piperacillin-Tazob PHA 10/03/24 In Process 3.375gm (Zosyn 3.375g 12:00 Vancomycin Per PHA 10/03/24 In Process Pharmacy 08:15 Mrsa Screen LOU 10/03/24 Logged 08:14 Complete Blood Count LAB 10/04/24 Verified 04:00 Creatinine LAB 10/04/24 Verified 04:00 Vancomycin 1gm/250ml PHA 10/03/24 In Process Kit 23:00 Vancomycin,Trough LAB 10/05/24 Verified 10:00 Vancomycin Per SETH 10/03/24 In Process Pharmacy Protoc 11:08 Sodium Chloride 0.9% PHA 10/03/24 In Process 13:30 Date of Service: Oct 03, 2024 Billing Provider: SALVADOR SANDS MD Common Visit Codes: [id number] CARE 30-74 MIN SALVADOR SANDS MD Oct 03, 2024 14:56
[2024-10-04] VITALS (30 sets, daily range): BP systolic 110–148; BP diastolic 63–91; PULSE 55–98; RESP 12–26; TEMP 97.5–98.7; O2SAT 94–98
[2024-10-04 05:25] LABS: Basophils # (auto) 0 10 ^3/uL (0-0.2); Basophils % (auto) 0.9 % (0.0-2.0); Eosinophils # (auto) 0.2 10 ^3/uL (0-0.8); Eosinophils % (auto) 4.5 % (0.0-7.0); Hematocrit 35.9 % (41.0-53.0); Lymphocytes # (auto) 0.6 10 ^3/uL (0.4-5.4); Lymphocytes % (auto) 12.6 % (10.0-50.0); Mean Corpuscular Hemoglobin 31.2 pg (28.0-32.0); Mean Corpuscular Hgb Conc. 33.4 g/dL (32.0-36.0); Mean Corpuscular Volume 93.3 fL (80.0-100.0); Monocytes # (auto) 0.6 10 ^3/uL (0-1.3); Monocytes % (auto) 12.7 % (0.0-12.0); Neutrophils # (auto) 3.4 10 ^3/uL (1.6-8.6); Neutrophils % (auto) 69.3 % (37.0-80.0); Nucleated Red Blood Cells % 0.1 %; Platelet Count (auto) 259 10^3/uL (140-450); Red Blood Cells 3.85 10^6/uL (4.5-5.90); Red Cell Distribution Width 13.7 % (11.8-14.3)
[2024-10-04 05:43] LABS: Anion Gap 7 (5-15); Carbon Dioxide 24 mmol/L (20-31); Chloride 105 mmol/L (98-107); Potassium 4.1 mmol/L (3.5-5.1)
[2024-10-04 05:49] LABS: BUN/Creatinine Ratio 9.2 (10.0-20.0); Glucose 102 mg/dL (74-106)
[2024-10-04 05:51] LABS: Blood Urea Nitrogen 8 mg/dL (9-23); Calcium 8.7 mg/dL (8.7-10.4); Sodium 136 mmol/L (136-145)
--- NOTE | 2024-10-04 11:49 | DVHPN2 ---
Progress Note Date Seen: Oct 04, 2024 Medical Necessity Reason Pt with a Central, PICC or Fol: No Objective vital signs Vital Sign Date Time Temp Pulse Resp B/P (MAP) Pulse Ox O2 Delivery O2 Flow Rate FiO2 10/04/24 08:00 78 20 95 Nasal Cannula* 2 28 10/04/24 05:00 144/81 (102) 10/04/24 04:00 98.4 98.4 Total Intake and Output 10/03/24 10/03/24 10/04/24 15:00 23:00 07:00 Intake Total 490.2 ml 1160 ml 1485 ml Output Total 2700 ml 500 ml Balance 490.2 ml -1540 ml 985 ml medications Current Medications Medications Dose Ordered Sig/Leti Route Start Time Stop Time Status Last Admin Dose Admin Ondansetron HCl 4 mg Q4HP PRN IV 09/30/24 07:45 10/04/24 03:26 4 MG Morphine Sulfate 2 mg Q4HPRN PRN IV 09/30/24 07:45 10/01/24 08:27 2 MG Metronidazole 100 ml @ 100 mls/hr Q8HR IV 09/30/24 14:00 10/04/24 05:28 100 MLS/HR Pantoprazole Sodium 40 mg DAILY IV 09/30/24 10:00 10/04/24 10:40 40 MG Diagnostic Test (Pha) 1 strip Q6HR 09/30/24 18:00 10/04/24 11:31 1 STRIP Insulin Human Regular Q6HR SC 09/30/24 18:00 10/04/24 11:36 2 UNITS Dextrose 50 ml UD PRN IV 09/30/24 15:45 Thiamine HCl 100 mg DAILY IV 10/01/24 10:00 10/04/24 10:41 100 MG Folic Acid 1 mg/ Dextrose 50.2 ml @ 200.8 mls/ hr DAILY INJ 10/01/24 10:00 10/04/24 10:43 200.8 MLS/HR Ketorolac Tromethamine 15 mg Q6HR IV 10/02/24 12:00 10/07/24 11:59 10/04/24 11:36 15 MG Enoxaparin Sodium 40 mg DAILY SC 10/03/24 10:00 10/04/24 10:43 40 MG Vancomycin HCl 0 ml @ 0 mls/hr UD IV 10/03/24 08:15 Vancomycin HCl 250 ml @ 250 mls/hr Q12H IV 10/03/24 23:00 10/04/24 11:37 250 MLS/HR Sodium Chloride 1,000 ml @ 120 mls/hr Q8H20M IV 10/03/24 13:30 10/04/24 05:28 120 MLS/HR Piperacillin Sod/ Tazobactam Sod 100 ml @ 25 mls/hr Q8H IV 10/04/24 14:00 laboratory and microbiology Laboratory Tests 10/04/24 05:10 Test 10/04/24 05:10 Range/Units Serum Glucose 102 74-106 mg/dL Problem List/Assessment/Plan Problem List/Assessment/Plan 10/02/24AFEBRILE, NORMOTENSIVEM WOUND CLEAN AND WELL APPROXIMATED, DRAINAGE SEROSANGUINEOUS, ABDOMEN NON DISTENDED, APPROPRIATELY TENDER, NEEDS TO START AMBULATION, NO FLATUS, KEEP NPO/ NGT IN 10/04/24 passing flatus, is hungry, abdomen appropriately tender, wound ok except umbilical ischemia, drain clear, will dc ngt and allow clear liquids, her is stable to transfer to [facility] Plan discussed with: Patient AKASH ALVAREZ MD Oct 04, 2024 11:49
[2024-10-04] MEDS ORDERED: ROCURONIUM 10MG/ML 10ML VIAL IV ONE (12:55)
--- NOTE | 2024-10-04 14:56 | DVHDS2 ---
Discharge Summary Date of Admission Sep 30, 2024 at 07:38 Date of Discharge: Oct 04, 2024 Labs/Diagnostic Data: Laboratory Results Test 10/04/24 11:28 10/04/24 05:10 10/03/24 05:07 10/02/24 11:49 POC Glucose 134 mg/dl (70-106) White Blood Count 5.0 10^3/uL (4.4-10.8) Red Blood Count 3.85 10^6/uL (4.5-5.90) Hemoglobin 12.0 g/dL (13.5-17.5) Hematocrit 35.9 % (41.0-53.0) Mean Corpuscular Volume 93.3 fL (80.0-100.0) Mean Corpuscular Hemoglobin 31.2 pg (28.0-32.0) Mean Corpuscular Hemoglobin Concent 33.4 g/dL (32.0-36.0) Red Cell Distribution Width 13.7 % (11.8-14.3) Platelet Count 259 10^3/uL (140-450) Mean Platelet Volume 6.6 fL (6.9-10.8) Neutrophils (%) (Auto) 69.3 % (37.0-80.0) Lymphocytes (%) (Auto) 12.6 % (10.0-50.0) Monocytes (%) (Auto) 12.7 % (0.0-12.0) Eosinophils (%) (Auto) 4.5 % (0.0-7.0) Basophils (%) (Auto) 0.9 % (0.0-2.0) Neutrophils # (Auto) 3.4 10 ^3/uL (1.6-8.6) Lymphocytes # (Auto) 0.6 10 ^3/uL (0.4-5.4) Monocytes # (Auto) 0.6 10 ^3/uL (0-1.3) Eosinophils # (Auto) 0.2 10 ^3/uL (0-0.8) Basophils # (Auto) 0 10 ^3/uL (0-0.2) Nucleated Red Blood Cells 0.1 % Sodium Level 136 mmol/L (136-145) Potassium Level 4.1 mmol/L (3.5-5.1) Chloride Level 105 mmol/L (98-107) Carbon Dioxide Level 24 mmol/L (20-31) Anion Gap 7 (5-15) Blood Urea Nitrogen 8 mg/dL (9-23) Creatinine 0.87 mg/dL (0.700-1.30) Glomerular Filtration Rate Calc 100 mL/min (>90) BUN/Creatinine Ratio 9.2 (10.0-20.0) Serum Glucose 102 mg/dL (74-106) Calcium Level 8.7 mg/dL (8.7-10.4) Phosphorus Level 2.1 mg/dL (2.4-5.1) Magnesium Level 2.3 mg/dL (1.6-2.6) Blood Gas Specimen Type Arterial Blood Gas Sample Site Right radial Blood Gas Patient Temperature 37.0 Arterial Blood Date Drawn Arterial Blood pH 7.462 (7.350-7.450) Arterial Blood Partial Pressure CO2 30.7 mmHg (35.0-48.0) Arterial Blood Partial Pressure O2 74.3 mmHg (83.0-108.0) Arterial Blood HCO3 21.4 mmol/L (21.0-28.0) Arterial Blood Oxygen Saturation 95.2 % (94.0-98.0) Arterial Blood Base Excess -1.4 mmol/L (-2.0-3.0) Arterial Blood Oxyhemoglobin 94.2 % (94.0-98.0) Arterial Blood Carboxyhemoglobin 0.7 % (0.5-1.5) Arterial Blood Methemoglobin 0.4 % (0.0-1.5) Ranjit Test Yes Blood Gas Total Hemoglobin 13.60 g/dL (13.5-17.5) Blood Gas Liter Flow 7.00 Blood Gas Modality Oxymizer FiO2 % 58.0 Test 10/01/24 04:35 09/30/24 19:01 09/30/24 13:46 09/30/24 05:08 Total Bilirubin 0.6 mg/dL (0.2-1.0) Aspartate Amino Transferase (AST) 15 U/L (13-40) Alanine Aminotransferase (ALT) 12 U/L (7-40) Alkaline Phosphatase 68 U/L (46-116) Total Protein 6.7 g/dL (5.7-8.2) Albumin 4.0 g/dL (3.2-4.8) Troponin I High Sensitivity 20 ng/L (</=54) Blood Gas Spontaneous Rate 22 Prothrombin Time 10.3 sec (9.3-11.8) Prothrombin Time INR 0.97 (0.9-1.15) Activated Partial Thromboplast Time 25.7 SEC (24.5-34.5) Hemoglobin A1c 6.1 % A1C (<5.7) Lactic Acid Level 2.0 mmol/L (0.4-2.0) Triglycerides Level 78 mg/dL (< 150) Cholesterol Level 141 mg/dL (< 200) LDL Cholesterol 59 mg/dL (< 100) HDL Cholesterol 56 mg/dL (40-59) Thyroid Stimulating Hormone (TSH) 1.51 uIU/mL (0.55-4.78) Test 09/30/24 02:11 09/30/24 01:56 Urine Color Yellow (Yellow) Urine Clarity Clear (Clear) Urine pH 7.0 (5.0-9.0) Urine Specific [place] 1.034 (1.001-1.035) Urine Protein Negative (Negative) Urine Ketones 1+ (Negative) Urine Blood Negative /uL (Negative) Urine Nitrite Negative (Negative) Urine Bilirubin Negative (Negative) Urine Urobilinogen Normal mg/dL (Negative) Urine Leukocyte Esterase Negative /uL (Negative) Urine RBC <1 /hpf (0 - 3) Urine WBC 1 /hpf (0 - 3) Urine Squamous Epithelial Cells Few /hpf (<5) Urine Bacteria None seen /hpf (None Seen) Urine Glucose 4+ mg/dL (Normal) B-Type Natriuretic Peptide 10.82 pg/mL (0-100) Lipase 30 U/L (12-53) Other Laboratory Tests 10/04/24 05:10 Brief Hx & Hospital Course: 59 M with EDS found to have perforation. seen by surgery and exlap was done. Patient also had SOB and increased O2 requirements. Transfered to step down unit due to higo2 requirements, covered with abx, and with IR improved. now passed gas and BM, sle to transfer for continuity of care Condition at Discharge: Fair Final Diagnosis/Problems List perf s/p exlap Discharge Disposition: Acute Care Facility 39 Discharge Statement: "Patient was advised to return to the ER or call 911 if any headaches, dizziness, shortness of breath, chest pain, abdominal pain, bleeding, fevers, or worsening of medical condition. Patient was counseled about treatment plan, medications, possible side effects, patientverbalized understanding. All questions were answered to the best of my ability. This discharge took greater then 30 minutes in planning, reviewing documentation, counseling the patient, and discussing with other team members." ASSESSMENT ASSESSMENT Assessment bowel perforation s/p exploratory laparotomy chronic systolic heart failure heart failure with improved ejection fraction type 2 DM christal-danlos alcohol use obesity HTN blood loss anemia hypophos Date of Service: Oct 04, 2024 Billing Provider: SALVADOR SANDS MD Common Visit Codes: [id number] DISCH DAY >30min SALVADOR SANDS MD Oct 04, 2024 14:55
[2024-10-04] MEDS: PIPERACILLIN-TAZOB 3.375GM 100 ML IV SCH (15:37)
[2024-10-04 16:54] LABS: Chloride 105 mmol/L (98-107); Potassium 4.1 mmol/L (3.5-5.1)
[2024-10-04 16:55] LABS: Anion Gap 6 (5-15); Carbon Dioxide 23 mmol/L (20-31)
[2024-10-04 17:00] LABS: BUN/Creatinine Ratio 8.2 (10.0-20.0); Blood Urea Nitrogen 12 mg/dL (9-23)
[2024-10-04 17:05] LABS: Calcium 8.5 mg/dL (8.7-10.4); Glucose 110 mg/dL (74-106); Sodium 134 mmol/L (136-145)
== END 2024-10-04 22:10 | disposition short-term general hospital (02) | DRG 854 ==
LOC: ER 01:34 → TELE 07:38 → DOU IN ICU 18:38 → TELE-EAST 10-04 13:01
PROVIDERS: ATTEND Student in an Organized Health Care Education/Training Program
PROC: 0DBA0ZZ Excision of Jejunum, Open Approach (ICD-10-PCS; principal; 2024-09-30 10:53)
DX: A41.9 Sepsis, unspecified organism (principal); I50.22 Chronic systolic (congestive) heart failure; K57.00 Diverticulitis of small intestine with perforation and abscess without bleeding; Q79.60 Ehlers-Danlos syndrome, unspecified; D50.0 Iron deficiency anemia secondary to blood loss (chronic); E27.8 Other specified disorders of adrenal gland; E11.9 Type 2 diabetes mellitus without complications; E66.9 Obesity, unspecified; E78.5 Hyperlipidemia, unspecified; E83.39 Other disorders of phosphorus metabolism; F10.10 Alcohol abuse, uncomplicated; I11.0 Hypertensive heart disease with heart failure; I25.10 Atherosclerotic heart disease of native coronary artery without angina pectoris; K44.9 Diaphragmatic hernia without obstruction or gangrene; Z88.0 Allergy status to penicillin; Z86.73 Personal history of transient ischemic attack (TIA), and cerebral infarction without residual deficits; I25.2 Old myocardial infarction; Z82.49 Family history of ischemic heart disease and other diseases of the circulatory system; Z83.3 Family history of diabetes mellitus; Z82.3 Family history of stroke; Z68.32 Body mass index [BMI] 32.0-32.9, adult
CPT/HCPCS: 36415; 36600; 71045; 74176; 80048; 80053; 80061; 81001; 82805; 82962; 83036; 83605; 83690; 83735; 83880; 84100; 84443; 84484; 85025; 85610; 85730; 86850; 86900; 86901; 87070; 87075; 87081; 87205; 93005; 93306; 97110; 97116; 97163; 97530; G0378; J0131; J0330; J1100; J1885; J1956; J2250; J2405; J2470; J2543; J3490; J7060